=== PATIENT | female | born 1955 | race Caucasian/White ===

== ENCOUNTER 2019-02-03 08:56 | Observation (INO) | payer MEDICARE ==
--- NOTE | 2019-01-21 23:57 | HP ---
AMENDED REPORT NOW INCLUDES DESIGNATED COSIGNER HISTORY AND PHYSICAL: DATE OF ADMISSION/SURGERY: 02/03/19 DATE OF OFFICE VISIT: 01/21/19 ATTENDING SURGEON: Dr. Fagan.* (DICTATED BY DOYLE GONZALEZ) PROCEDURE: Right total knee arthroplasty. CHIEF COMPLAINT: Right knee pain. HISTORY OF PRESENT ILLNESS: Ms. Nelson is a 63-year-old female with bilateral knee pain, right greater than left. The patient reports 10 years of increasing right knee pain with 7/10 achy pain along the medial and lateral joint line. She did have an arthroscopy on the right knee [address] Miles for a meniscal tear. The patient reports over the last six months her right knee has become daily aching pain. She notes that she cannot extend her knee all the way. She has had physical therapy, injections, antiinflammatories, brace wear, and multiple different kinds of cream for pain with minimal relief. She can no longer walk more than a block without significant pain. At this point, she would like to proceed with surgery. PAST MEDICAL HISTORY: Osteoarthritis, diverticulitis, GERD, anxiety, and essential tremor affecting both hands. PAST SURGICAL HISTORY: She had a right knee arthroscopy in 2009. MEDICATIONS: 1. Citalopram hydrobromide 40 mg 1 p.o. daily. 3. Glucosamine sulfate 1.5 g p.o. daily. 4. Multivitamin p.o. daily. 5. Fish oil 4000 mg p.o. daily. 6. Sedaplex valerian 200 mg, hops 150 mg, 150 mg passion flower valerian, Skulcap 125 mg. 7. Iron 65 mg p.o. daily. 8. Chondroitin sulfate 1.2 mg p.o. daily. 9. Ibuprofen 400 mg p.o. p.r.n. for pain. ALLERGIES: No known drug allergies. FAMILY HISTORY: Positive for diabetes and colon cancer. 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 She lives with her daughter and grandson. She denies tobacco or recreational drug use. She drinks 4 alcohol drinks per week. She is normally active with swimming and walking. She is right hand dominant. REVIEW OF SYSTEMS: General: Negative for fevers, chills, night sweats, unexplained weight loss or gain. No known anesthesia problems. HEENT: Negative for headache, lightheadedness, syncopal episodes, visual changes. Integumentary: Negative for abrasions, lesions, open wounds. Cardiothoracic: Negative for hypertension, chest pain, palpitations, edema. Respiratory: Negative for shortness of breath with exertion, chronic cough, wheezing. GI: Negative for nausea, vomiting, diarrhea, constipation, GERD. : Negative for nocturia, urinary frequency, urgency, history of UTIs, kidney problems. Musculoskeletal: Positive for bilateral knee pain and chronic back pain. Negative for history of fractures. Neurologic: Negative for paresthesias, numbness, history of seizure, stroke, poor balance. Negative for anxiety, depression. Endocrine: Negative for diabetes, thyroid disease. Hematologic: Negative for easy bruising, anemia, bleeding disorders, history of DVT. ID: Negative for history of MRSA infection, hep C, or HIV. PHYSICAL EXAMINATION GENERAL: Well-developed, well-nourished 63-year-old female, in no acute distress. VITAL SIGNS: Height 55 inches, weight 155 pounds. Pulse 60, BP 128/68, BMI 25.8. HEENT: Normocephalic, atraumatic. PERRLA. Extraocular movements intact. Throat is clear. NECK: Supple. No palpable lymph nodes. PULMONARY: Lungs are clear to auscultation bilaterally. No wheezes, rales, or rhonchi. CARDIO: Regular rate and rhythm. S1 and S2 normal. No murmurs, rubs, or gallops. No edema. ABDOMEN: Positive bowel sounds, soft and nontender. NEUROLOGIC: A and O x3. Cranial nerves II through XII intact. Sensation is intact to light touch. MUSCULOSKELETAL: Right lower extremity: The patient's skin is intact. No abrasions or open wounds. No palpable masses or lymph nodes. Moderate effusion at the knee joint with tenderness along the medial joint line. Range of motion is 20 to 100 degrees of flexion at the knee. Tenderness along the medial joint line with no varus or valgus instability. Distally, no edema, varicosities, or hyperreflexia. 5/5 ankle dorsiflexion and plantarflexion strength. Full sensation to light touch in all nerve distributions and 2+ palpable DP pulse. DIAGNOSTIC STUDIES: Multiple plain films of the patient's bilateral knee showed advanced osteoarthritis in both knees. The right knee is more affected than the left. There is medial patellofemoral pjai-si-mocr arthritis. Tricompartmental joint space narrowing. Osteophyte formation and subchondral sclerosis. IMPRESSION: Bilateral knee osteoarthritis, right greater than left. PLAN: The patient is scheduled to undergo a right total knee arthroplasty with Dr. Fagan on 02/03/19. Dr. Fagan discussed the procedure as well as the risks and benefits with the patient and she elected to proceed. She will return to the office in 10 day postop for followup and suture removal. Upon discharge from the hospital, a prescription for Percocet will be e-scribed to the patient' s pharmacy for postoperative pain management. An I-STOP was completed today in the office and was negative. DOYLE REYES [id number]/CPS #: [id number] MTDD
[~2019-02-03 08:56] MED LIST: Buffered Lidocaine 1% SYRIN* 1 ML/SYRINGE INTRADERM ONE; Famotidine IV* 10 MG/ML 2 ML (20 mg) IV ONE; Lactated Ringers 1000 ML Bag* 1,000 ML IV SCH; Tranexamic Acid 1,000 MG in NS 0.9% 50 ML* (outpatient use) IV SCH
[2019-02-03] MEDS ORDERED: Famotidine IV* 10 MG/ML 2 ML (20 mg) ONE (09:01)
[2019-02-03] MEDS ORDERED: Buffered Lidocaine 1% SYRIN* 1 ML/SYRINGE INTRADERM ONE (09:01)
[2019-02-03] MEDS ORDERED: ceFAZolin 2 GM in NS PREMIX(*) 2 GM/100 ML BAG IVPB ONE (09:01)
[2019-02-03] MEDS ORDERED: Lidocaine 1% MPF ** 5 ML VIAL ONE (09:55)
[2019-02-03] MEDS ORDERED: ROPIVACAINE 5 MG/ML 30 ML BTL (0.5%) ONE ×2 (09:55→11:14)
[2019-02-03] MEDS ORDERED: fentaNYL* 50 MCG/ML 2 ML VIAL (100 MCG VIAL) ONE (10:02)
[2019-02-03] MEDS ORDERED: Midazolam* 1 MG/ML 5 ML VIAL (5 MG) ONE (10:03)
[2019-02-03] MEDS ORDERED: KETAMINE HCL* 50 MG/ML 10 ML VIAL ONE (12:10)
[2019-02-03] MEDS ORDERED: Ondansetron INJ* 2 MG/ML VIAL ONE (12:30)
[2019-02-03] MEDS ORDERED: Dexamethasone IV* 4 MG/ML 1 ML (4 MG) ONE (12:30)
[2019-02-03] MEDS ORDERED: DiMENhydriNATE IV* 50 MG/ML VIAL ONE (12:30)
[2019-02-03] MEDS ORDERED: Ketorolac INJ* 30 MG/ML 1 ML VIAL ONE (12:30)
[2019-02-03] MEDS ORDERED: Propofol* 10 MG/ML 20 ML BTL ONE (12:30)
[2019-02-03] MEDS ORDERED: Midazolam* 1 MG/ML 2 ML VIAL (2 MG) ONE (13:33)
[2019-02-03] MEDS ORDERED: oxyCODONE TAB* 5 MG TAB PO PRN (13:50)
[2019-02-03] MEDS ORDERED: HYDROmorphone INJ1* 1 MG/ML SYRINGE IV PRN (13:50)
[2019-02-03] MEDS ORDERED: Acetaminophen TAB* 325 MG PO PRN (13:50)
[2019-02-03] MEDS ORDERED: Naloxone* 0.4 MG/ML 1 ML VIAL IV PRN (13:50)
[2019-02-03] MEDS ORDERED: DiMENhydriNATE IV* 50 MG/ML VIAL IV PUSH PRN (13:50)
[2019-02-03] MEDS ORDERED: Morphine INJ* 2 MG/ML 1 ML SYRINGE (TWO MG - NEW SYRINGE VERSION) IV PRN (14:28)
[2019-02-03] MEDS ORDERED: Bisacodyl SUPP* 10 MG SUPP PR PRN (14:28)
[2019-02-03] MEDS ORDERED: Cyclobenzaprine TAB* 10 MG PO PRN (14:28)
[2019-02-03] MEDS ORDERED: Polyethylene Glycol 3350* 17 GM PACKET PO PRN (14:28)
[2019-02-03] MEDS ORDERED: diPHENhydraMINE IV* 50 MG/ML 1 ml VIAL (BENADRYL) IV PRN (14:28)
[2019-02-03] MEDS ORDERED: diPHENhydraMINE PO* 25 MG PO PRN (14:28)
[2019-02-03] MEDS ORDERED: traMADol TAB* 50 MG PO PRN (14:28)
[2019-02-03] MEDS ORDERED: Ondansetron INJ* 2 MG/ML VIAL IV PRN (14:28)
[2019-02-03] MEDS ORDERED: Magnesium Hydroxide LIQ* 30 ML UDC PO PRN (14:28)
[2019-02-03] MEDS ORDERED: oxyCODONE/Acetamin 5/325 MG* TAB PO PRN (14:34)
[2019-02-03] MEDS ORDERED: Lactated Ringers 1000 ML Bag* 1,000 ML IV SCH (15:00)
[2019-02-03] MEDS ORDERED: Acetaminophen TAB* 325 MG ONE (15:25)
[2019-02-03] MEDS: Acetaminophen TAB* 325 MG PO SCH (16:19)
[2019-02-03] MEDS: oxyCODONE TAB* 5 MG TAB PO PRN ×2 (16:46→21:48)
--- NOTE | 2019-02-03 18:23 | OP ---
Operative Report - Blank - Operative Report Date of Operation: 02/03/19 Note: LUIS SARMIENTO 1955 Date of Surgery: 02/03/19 Jessie Fagan MD C S S Representative: Pedro KWON did help throughout the procedure with preparation of the knee, wound retraction, manipulation of the knee, and wound closure. Anesthesiologist: Erica Bob MD Anesthesia Type: Spinal Preoperative Diagnosis: Right severe degenerative osteoarthritis of the knee Postoperative Diagnosis: As above Procedure Performed: Right Total Knee Arthroplasty Tourniquet time: 43 minutes Complications: None Specimen: Bone and cartilage from the right knee joint sent to pathology. Hardware Used: Cemented Escalante and Nephew total knee hardware was used - For the femur a size 6 right narrow oxinium legion posterior stabilized femoral component, for the tibia a size 4 right arabella II tibial baseplate, for the insert a size 9mm 3-4 posterior stabilized high flexion articular polyethylene insert, and for the patella a size 32 3-peg all poly patella. Brief History/Indication: LUIS SARMIENTO was known in clinic and had a history of severe right knee pain and swelling. She failed conservative treatment with anti-inflammatories, pain pills, intra-articular injections and physical therapy. She elected to undergo right total knee arthroplasty due to continued pain and decreased quality of life. Radiographs showed severe end stage osteoarthritis of the knee with bone on bone contact. Informed consent was obtained from the patient. She understood the risks of surgery included but were not limited to: bleeding, infection, damage to nearby structures, intraoperative fracture, nerve palsy, failure of the hardware, early loosening, knee stiffness or loss of motion, anesthesia complications, stroke, heart attack , blood clot and . She wished to proceed. Intra-Operative Findings: Intraoperatively the patient was noted to have severe loss of cartilage in all 3 compartments of the knee. Description of the Procedure: LUIS SARMIENTO was identified in the preanesthesia unit. Her right knee was marked as the correct operative side. Informed consent was signed and placed in the chart. The patient was taken to the operating room and placed under anesthesia without complication. A felix catheter was placed. A tourniquet was placed on the right thigh. The right lower extremity was prepped and draped in the usual sterile fashion. Preoperative time-out was made to correctly identify the patient, side and site. Appropriate intraoperative antibiotics were given within one hour of incision. Tourniquet was inflated. A midline incision was made and carried sharply down to the extensor mechanism. A new 10 blade was used to make a standard medial parapatellar arthrotomy. The patella was subluxed laterally. Electrocautery was used to dissect soft tissue off the superomedial tibia to the midsagittal plane. The knee was flexed up. The anterior horn of the lateral meniscus and the ACL were sharply incised. A drill was used to enter the distal femur. The intramedullary distal femoral cutting guide was pinned on the distal femur. The oscillating saw was used to make the distal femoral cut. The external rotation guide was pinned on the distal femur and the distal femur was sized to a size 6. The size 6 multi-cutting jig was pinned on the distal femur. The oscillating saw was used to make the appropriate 4 chamfer cuts. Next the PCL was completely released. The extramedullary tibial cutting guide was pinned on the proximal tibia and the oscillating saw was used to make the proximal tibial cut perpendicular to the mechanical axis of the tibia. The bone was carefully removed. The knee was brought out into full extension. The spacer block was placed and had excellent fit with the knee in full extension. The medial and lateral ligaments were well balanced. The flexion and extension gaps were well balanced. The knee was flexed up. Lamina long winder tender was placed both medially and laterally. Any remaining meniscus was removed with electrocautery. Curved osteotome was used to remove any posterior osteophytes. The tibial tray and drop jeramie were placed and confirmed a satisfactory tibial cut. The size 6 right narrow femoral trial was impacted onto the distal femur. This trial had excellent fit and stability. The box for the posterior stabilized implant was prepared using a box cut osteotome and a reamer. Next a tibial tray trial and 9 mm insert trial was placed. The knee was taken through a range of motion and had full extension to 130 degrees of flexion. Patellofemoral tracking was satisfactory. The patella was inverted and sized to a size 32. Three peg holes were drilled through the size 32 drill guide. The trial patella was placed and the knee was taken through a range of motion. There was satisfactory patellofemoral tracking. All trials were removed. The tibia was subluxed anteriorly and sized to a size 4. The proximal tibial was prepared with a size 4 keel punch. All bony cut surfaces were irrigated with sterile saline and dried. Final implants were cemented into place starting with the tibia, followed by the femur, and last the patella. A 9 mm insert trial was placed and the knee was brought into full extension. Tourniquet was turned down and the knee was copiously irrigated with sterile saline. Electrocautery was used to obtain meticulous hemostasis. Once the cement had fully cured, the insert trial was removed. Any excess cement was removed from around the hardware and capsule. Final insert chosen was a 9 mm posterior stabilized Arabella II articular insert size 3-4. Stability of the insert was checked and noted to be stable. The extensor mechanism was closed using number 1 vicryls. The rest of the incision was closed in a layered fashion using 0 and 2-0 vicryls. The skin was closed using 3-0 nylon suture. Sterile xeroform, 4x4s and webril were used to cover the incision. Arnulfo wrap and cold pack were used to cover the dressings. The patients anesthesia was reversed without difficulty. She was taken to the PACU in stable condition. Intended weight-bearing will be as tolerated.
[2019-02-03] MEDS: ceFAZolin 1 GM ADVAN(*) 1 GM in NS 0.9% 50 ML* 50 ML IVPB SCH (19:45)
[2019-02-03] MEDS: Docusate CAP* 100 MG PO SCH (21:49)
[2019-02-03] MEDS: Magnesium Hydroxide LIQ* 30 ML UDC PO SCH (21:49)
[2019-02-04] MEDS: Acetaminophen TAB* 325 MG PO SCH ×3 (00:56→16:24)
[2019-02-04] MEDS: oxyCODONE TAB* 5 MG TAB PO PRN ×2 (02:07→06:12)
[2019-02-04] MEDS: oxyCODONE/Acetamin 5/325 MG* TAB PO PRN ×4 (04:11→16:17)
[2019-02-04] MEDS: ceFAZolin 1 GM ADVAN(*) 1 GM in NS 0.9% 50 ML* 50 ML IVPB SCH ×2 (04:13→11:35)
[2019-02-04 06:44] LABS: Hematocrit 32 % (35-47); Mean Platelet Volume 7.9 fL (7.4-10.4); Platelet Count 171 10^3/uL (150-450)
[2019-02-04 07:05] LABS: BUN/Creatinine Ratio 20.8 (8-20); Calcium 8.6 mg/dL (8.6-10.3); EGFR African American 157.1 (>60); EGFR Non-African American 129.8 (>60); Potassium 3.8 mmol/L (3.5-5.0)
[2019-02-04] MEDS: Docusate CAP* 100 MG PO SCH (08:54)
[2019-02-04] MEDS: Magnesium Hydroxide LIQ* 30 ML UDC PO SCH (08:55)
[2019-02-04] MEDS ORDERED: Citalopram TAB* 40 MG PO SCH (09:00)
[2019-02-04] MEDS ORDERED: Apixaban* 2.5 MG TAB PO SCH (09:00)
[2019-02-04] MEDS ORDERED: Pneumococcal *Vac Polyvalent 0.5 ML VIAL IM ONE (09:00)
[2019-02-04] MEDS ORDERED: IRON 65 MG PO SCH (09:00)
--- NOTE | 2019-02-04 10:49 | DS ---
Orthopedic Discharge Summary - Discharge Summary Date of Admission:02/03/19 Date of Discharge: 02/04/19 Date of Surgery: 02/03/19 Attending Orthopedic Provider: Dr. Fagan Pre-operative Diagnosis: Degenerative arthritis right knee Operative Procedure: Right total knee arthroplasty Disposition of Patient: home Condition of Patient: stable History: LUIS SARMIENTO is a 63 year old F with years of increasingly severe right knee pain. Patient has failed conservative management and has elected to undergo a right total knee replacement Hospital Course: LUIS was admitted to [facility] on 02/03/19. Patient underwent a right total knee replacement without complication followed by a brief recovery in PACU and transfer to the Short Stay Surgical Unit in stable condition. Our hospitalist service, physical therapy and occupational therapy also participated in this patients care. Post-op day 1: patient was alert and in no acute distress. Dressing was clean, dry and intact. Operative extremity dorsiflexion and plantarflexion intact, sensation intact to light touch distally, DP2+. Dressing was changed, incision was clean, dry and intact. Patient was deemed to be medically and orthopedically stable for discharge. Physical therapy goals were met. Home Medications Medication Instructions Recorded Confirmed Type Citalopram TAB* [Celexa TAB*] 40 mg PO QAM 12/30/12 02/03/19 History Multivitamin [Multivitamins] 1 cap PO QAM 12/30/12 02/03/19 History [place]-3/Dha/Epa/Fish Oil [Fish Oil 4 cap PO QAM 12/16/13 02/03/19 History EC 1,000 mg Softgel] Glucosam/Chondr/Collagn/Hyalur 1 cap PO QAM 01/21/19 02/03/19 History [Glucosamine & Chondroitin Cap] Iron 65 Mg 1 tab PO QAM 01/21/19 02/03/19 History Sedaplex 2 Capsules 2 cap PO BEDTIME PRN 01/21/19 02/03/19 History T-Relief Arnica Cream 1 applic TOPICAL BID PRN 01/21/19 02/03/19 History Apixaban* [Eliquis*] 2.5 mg PO BID #60 tab 02/04/19 Rx Docusate CAP* [Colace Cap*] 100 mg PO BID cap 02/04/19 Rx oxyCODONE/Acetamin 5/325 MG* 1 tab PO Q4H PRN #56 tab MDD 8 02/04/19 Rx [Percocet 5/325 TAB*] Discharge Instructions following Orthopedic Surgery: Activity: * Weight Bearing as tolerated * Continue physical therapy and occupational therapy exercises as shown Wound care: * OK to shower on post-op day 3, no bathing, swimming, or submerging wound. * Use gentle soap, pat dry. Cover with gauze, DRAKE wrap or tape. * Visiting home nurse to do wound checks. Call Orthopedic office for: * Increased drainage * Redness * Increased pain * Fever Go to ER with shortness of breath or chest pain. Diet: * Regular diet * Increase fluids and fiber to prevent constipation. * Continue to use stool softeners, call office if no bowel motion within 48 hours. Medications See Home Medication List in your packet for medications that you should take after discharge. DVT Prophylaxis: Eliquis Dosin.5 mg, 1 tab every 12 hours x 30 days Pain Control: Percocet Dosin/325 mg 1-2 tabs by mouth every 4-6 hours as needed for pain. Maximum of 10 tabs per day. Please note that Percocet contains Tylenol (acetaminophen). Maximum daily dose of Tylenol is 4000 mg from all sources. Antibiotics are required prior to any dental work. FOLLOW UP: Follow up with Dr. Fagan Within 10-14 days, call for appointment Please call our office with any questions or concerns ([phone])
[2019-02-04 16:00] VITALS: BP 148/68
== END 2019-02-04 18:45 | disposition home or self-care (01) ==
LOC: OR 08:56 → INTOOBSV 14:28 → SSU 14:28
PROVIDERS: ADMIT Orthopaedic Surgery Adult Reconstructive Orthopaedic Surgery; ATTEND Orthopaedic Surgery Adult Reconstructive Orthopaedic Surgery
DX: M17.11 Unilateral primary osteoarthritis, right knee (principal); K57.92 Diverticulitis of intestine, part unspecified, without perforation or abscess without bleeding; K21.9 Gastro-esophageal reflux disease without esophagitis; F41.9 Anxiety disorder, unspecified; Z79.899 Other long term (current) drug therapy
CPT/HCPCS: 36415; 80048; 85014; 85018; 85049; 90471; 90732; 96374; 96376; A9270-GY; C1776; G0009; G0378; G8978-GP-CJ; G8979-GP-CI; J0690; J1100; J1240; J1885; J2250; J2405; J2704; J2795; J3010

== ENCOUNTER 2019-02-18 09:24 | Emergency (ER) | payer MEDICARE ==
--- OUTSIDE RECORDS SUMMARY | 2019-02-18 09:47 | XMS REPORT | Continuity of Care Document ---
:1955 External Reference #:[id number] Author Name TracyTerrie perez Care Team Providers Name Role Phone Pawel Singh MD Primary Care Physician Unavailable Payers Date Identification Numbers Payment Provider Subscriber Policy Number: [id number] Medicare Татьяна Nelson PayID: [id number] [address] [place] [address] Policy Number: [id number] [facility] Татьяна Nelson PayID: [id number] [address] [place] [address] Expires: 2018 Policy Number: [id number] [employer] Татьяна Nelson PayID: [id number] [address] [address] [place] [address] Problems Active Problems Provider Date Localized, primary osteoarthritis Jessie Fagan M.D. 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 Tablets 30 days T-Relief Pain Relief Unknown Ibuprofen prn Unknown 400mg Tablets Chondroitin Sulfate 1.2mg Unknown Iron (Ferrous 65mg Unknown Sulfate) Skulcap 125mg Unknown Passion Unknown Flower-Valerian Jujube 150mg Unknown Sedaplex Valerian 200mg Unknown Hops 150mg Fish Oil 4000mg Unknown Multivital Unknown Glucosamine Sulfate 1.5g Unknown Citalopram Take 1 Tablet By Unknown Hydrobromide Mouth Every Day 40mg Tablets History Medications L-Theanine 100mg Unknown - 01/20/2019 Capsules Niacin 25mg Unknown - 01/20/2019 Vitamin B6 15mg Unknown - 01/20/2019 Calcium 25mg Unknown - 01/20/2019 Magnesium 25mg Unknown - 01/20/2019 Medications Administered in Office Medication SIG Qnty Indications Ordering Provider Date Depomedrol 80MG Mayra Phan M.D. 11/04/2012 Injection Vital Signs Date Vital Result Comment 02/16/2019 9:37am Height 66 inches 5'6" Weight 80.00 lb BP Systolic 116 mmHg BP Diastolic 80 mmHg Body Temperature 97.5 F BMI (Body Mass Index) 12.9 kg/m2 01/21/2019 10:12am Height 65 inches 5'5" Weight 155.00 lb Heart Rate 60 /min BP Systolic 128 mmHg BP Diastolic 68 mmHg BMI (Body Mass Index) 25.8 kg/m2 11/29/2018 11:32am Height 65 inches 5'5" Weight 159.00 lb Heart Rate 60 /min BP Systolic 130 mmHg BP Diastolic 74 mmHg Pain Level 7 BMI (Body Mass Index) 26.5 kg/m2 Results Test Date Facility Test Result H/L Range Note CBC Auto 01/21/2019 [facility] White Blood 6.1 10^3/uL Normal 3.5-10.[address] [place] [address] [phone] Red Blood Count 4.37 10^6/uL Normal 3.70-4.87 Hemoglobin 13.4 g/dL Normal 12.0-16.0 Hematocrit 39 % Normal 35-47 Mean Corpuscular Volume 90 fL Normal 80-97 Mean Corpuscular Hemoglobin 31 pg Normal 27-31 Mean Corpuscular HGB Conc 34 g/dL Normal 31-36 Red Cell Distribution Width 15 % Normal 10-15 Platelet Count 255 10^3/uL Normal 150-450 Mean Platelet Volume 7.3 fL Low 7.4-10.4 Abs Neutrophils 3.5 10^3/uL Normal 1.5-7.7 Abs Lymphocytes 1.9 10^3/uL Normal 1.0-4.8 Abs Monocytes 0.5 10^3/uL Normal 0-0.8 Abs Eosinophils 0.1 10^3/uL Normal 0-0.6 Abs Basophils 0.1 10^3/uL Normal 0-0.2 Abs Nucleated RBC 0.0 10^3/uL Granulocyte % 57.2 % Lymphocyte % 31.8 % Monocyte % 7.8 % Eosinophil % 2.1 % Basophil % 1.1 % Nucleated Red Blood Cells % 0.1 Urinalysis Profile 01/21/2019 [facility] Urine Color Yellow [address] [place] [address] [phone] Urine Appearance Clear Urine Specific [place] 1.014 Normal 1.010-1.030 Urine pH 5.0 Normal 5-9 Urine Urobilinogen Negative Negative Urine Ketones Negative Negative Urine Protein Negative Negative Urine Leukocytes Negative Negative Urine Blood Negative Negative Urine Nitrite Negative Negative Urine Bilirubin Negative Negative Urine Glucose Negative Negative Inr/Protime 01/21/2019 [facility] Inr 0.90 Normal 0.82-1.[address] [place] [address] [phone] Laboratory test 01/21/2019 [facility] Partial 33.0 Normal 26.0 -38.0 [address] [place] [address] Time PTT [phone] Type & Screen 01/21/2019 [facility] Patient A Positive [address] [place] [address] [phone] Antibody Screen NEGATIVE 1 AA 02/03 2 Standard intensity warfarin therapeutic range: 2.0-3.0 High intensity warfarin therapeutic range: 2.5-3.5 3 AA 02/03 Procedures Date Code Description Status 02/03/2019 97260 TKR Total Knee Replacement Completed 02/03/2019 81353 TKR Total Knee Replacement Completed 11/04/2012 35267 Rad Exam; Fingers Completed 11/04/2012 60174 Inject/Drain Joint/Bursa Small W/O US Completed 12/15/2006 04186 EKG, Interpretation Only Completed Encounters Type Date Location Provider Dx Diagnosis Office Visit 11/29/2018 Orthopedic Jessie Fagan, M25.561 Pain in right 11:00a [facility] knee M25.562 Pain in left knee M25.461 Effusion, right knee M25.462 Effusion, left knee M17.0 Bilateral primary osteoarthritis of knee Office Visit 11/04/2012 1:00p Orthopedic Mayra 716.94 Arthropathy [facility] Plan of Treatment 02/16/2019 - Jessie Fagan M.D.M17.11 Unilateral primary osteoarthritis, right kneeNew Therapy:Physical TherapyFollow up:Follow up: 2 ceckaZ17.651 Presence of right artificial knee cwftcU09.1 Aftercare following joint replacement surgery
--- OUTSIDE RECORDS SUMMARY | 2019-02-18 09:47 | XMS REPORT | Continuity of Care Document ---
:1955 External Reference #:[id number] Author Name Karrie Kemp Care Team Providers Name Role Phone Pawel Singh MD Primary Care Physician Unavailable Payers Date Identification Numbers Payment Provider Subscriber Policy Number: [id number] Medicare Татьяна Nelson PayID: [id number] [address] [place] [address] Policy Number: [id number] [facility] Татьяна Nelson PayID: [id number] [address] [place] [address] Expires: 2018 Policy Number: [id number] [employer] Татьяна Nelson PayID: [id number] [address] [address] [place] [address] Problems Active Problems Provider Date Localized, primary osteoarthritis Jessie Fagan M.D. 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 Use Currently consumes alcohol 4 drinks/week Tobacco Use Start: Unknown Patient has never smoked Smoking Status Reviewed: 01/21/19 Patient has never smoked Exercise Type/Frequency Exercises regularly Allergies, Adverse Reactions, Alerts Description No Known Drug Allergies Medications Active Medications SIG Qnty Indications Ordering Provider Date T-Relief Pain Relief Unknown Ibuprofen prn Unknown 400mg Tablets Chondroitin Sulfate 1.2mg Unknown Iron (Ferrous Sulfate) 65mg Unknown Skulcap 125mg Unknown Passion Unknown Flower-Valerian Jujube [...] Injection Vital Signs Date Vital Result Comment 01/21/2019 10:12am Height 65 inches 5'5" Weight [...] Test Result H/L Range Note CBC Auto Diff 01/21/2019 [facility] White Blood 6.1 10^3/uL N 3.5-10.[address] [place] [address] [phone] Red Blood Count 4.37 10^6/uL N 3.70-4.87 Hemoglobin 13.4 g/dL N 12.0-16.0 Hematocrit 39 % N 35-47 Mean Corpuscular Volume 90 fL N 80-97 Mean Corpuscular Hemoglobin 31 pg N 27-31 Mean Corpuscular HGB Conc 34 g/dL N 31-36 Red Cell Distribution Width 15 % N 10-15 Platelet Count 255 10^3/uL N 150-450 Mean Platelet Volume 7.3 fL Low 7.4-10.4 Abs Neutrophils 3.5 10^3/uL N 1.5-7.7 Abs Lymphocytes 1.9 10^3/uL N 1.0-4.8 Abs Monocytes 0.5 10^3/uL N 0-0.8 Abs Eosinophils 0.1 10^3/uL N 0-0.6 Abs Basophils 0.1 10^3/uL N 0-0.2 Abs Nucleated RBC 0.0 10^3/uL Granulocyte % 57.2 % Lymphocyte % 31.8 % Monocyte % 7.8 % Eosinophil % 2.1 % Basophil % 1.1 % Nucleated Red Blood Cells % 0.1 Urinalysis Profile 01/21/2019 [facility] Urine Color Yellow [address] [place] [address] [phone] Urine Appearance Clear Urine Specific [place] 1.014 N 1.010-1.030 Urine pH 5.0 N 5-9 Urine Urobilinogen Negative Negative Urine Ketones Negative Negative Urine Protein Negative Negative Urine Leukocytes Negative Negative Urine Blood Negative Negative Urine Nitrite Negative Negative Urine Bilirubin Negative Negative Urine Glucose Negative Negative 1 AA 02/03 Procedures Date Code Description Status 11/04/2012 41905 Rad Exam; Fingers Completed 11/04/2012 82601 Inject/Drain Joint/Bursa Small W/O US Completed 12/15/2006 60228 EKG, Interpretation Only Completed Encounters Type Date Location Provider Dx Diagnosis Office Visit 11/29/2018 [facility] Jessie Fagan, M25.561 Pain in right 11:00a [facility] knee M25.562 Pain in left knee M25.461 Effusion, right knee M25.462 Effusion, left knee M17.0 Bilateral primary osteoarthritis of knee Office Visit 11/04/2012 1:00p Orthopedic Mayra 716.94 [facility] Plan of Treatment Future Appointment(s):02/03/2019 12:30 pm - Segundo Crespo PA-C at [facility]/03/2019 12:30 pm - URMILA Ryan at [facility]/03/2019 12:30 pm - Jessie Fagan M.D. at [facility]/21/2019 - Jessie Fagan M.D.M17.0 Bilateral primary osteoarthritis of kneeFollow up:10-14 days post-opM25.561 Pain in right knee
--- NOTE | 2019-02-18 12:06 | ED ---
Allergic Reaction/Systemic - HPI Summary HPI Summary: A 63 y/o female presents to [facility] with a chief complaint of lip swelling since yesterday. Now she notes that her swelling has radiated to her jaw. She denies any previous allergic reactions. 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 The patient is not on blood pressure medications and is not having difficulty swallowing, but she notes that it itches. - History of Current Complaint Chief Complaint: EDFacialInjury Time Seen by Provider: 02/18/19 11:52 Hx Obtained From: Patient Onset/Duration: Sudden Onset, Started hours ago, Still Present Timing: Constant Severity Initially: Mild Severity Currently: Mild Pain Intensity: 1 Pain Scale Used: 0-10 Numeric Location: Other - lip and jaw Character: Swelling, Pruritus Aggravating Factor(s): Nothing Alleviating Factor(s): Nothing Associated Signs And Symptoms: Negative: Other: - difficulty swallowing - Allergies/Home Medications Allergies/Adverse Reactions: Allergies Allergy/AdvReac Type Severity Reaction Status Date / Time nickel Allergy Severe Rash Verified 02/03/19 09:21 Home Medications: Home Medications Acetaminophen TAB* [Tylenol TAB*] 325 mg PO Q4H PRN 02/18/19 [History Confirmed 02/18/19] Ceramides 1,3,6-11 [Cerave] 1 applic TOPICAL BID PRN 02/18/19 [History Confirmed 02/18/19] Docusate CAP* [Colace Cap*] 100 mg PO DAILY 02/18/19 [History Confirmed 02/18/19 ] Fluocinolone Acetonide 1 applic TOPICAL DAILY PRN 02/18/19 [History Confirmed ] Multivitamins/Minerals TAB* [Theragran/minerals TAB*] 1 tab PO DAILY 02/18/19 [ History Confirmed 02/18/19] Tumeric 1 tab PO DAILY 02/18/19 [History Confirmed 02/18/19] PMH/Surg Hx/FS Hx/Imm Hx Endocrine/Hematology History: Denies: Hx Diabetes Cardiovascular History: Denies: Hx Congestive Heart Failure, Hx Hypertension GI History: Reports: Hx Gastroesophageal Reflux Disease, Other GI Disorders - acid reflux Musculoskeletal History: Reports: Hx Arthritis - hands, knees, Other Musculoskeletal History - right hamstring shortened Sensory History: Reports: Hx Contacts or Glasses - glasses Denies: Hx Hearing Aid Opthamlomology History: Reports: Hx Contacts or Glasses - glasses Neurological History: Reports: Hx Nerve Disease - RLS occassionally, Other Neuro Impairments/Disorders - essentail tremors- hands, fingers - Cancer History Hx Chemotherapy: No - Surgical History Surgery Procedure, Year, and Place: LEFT MENISCUS REPAIR 2010 approx [facility]. tubal ligation. right knee meniscus repair 2006 Hx Anesthesia Reactions: No Infectious Disease History: No Infectious Disease History: Denies: Traveled Outside the [place] in Last 30 Days - Family History Known Family History: Positive: Diabetes, Other - positive: colon cancer - Social History Alcohol Use: Daily Alcohol Amount: 1-2 Substance Use Type: Reports: None Hx Tobacco Use: No Smoking Status (MU): Never Smoked Tobacco Review of Systems Negative: Fever Negative: Other - difficulty swallowing Positive: Other - positive: lip and jaw swelling and itching All Other Systems Reviewed And Are Negative: Yes Physical Exam - Summary Physical Exam Summary: GENERAL: Patient is a well-developed and nourished F who is lying comfortable in the stretcher. Patient is not in any acute respiratory distress. HEAD AND FACE: Normocephalic, jaw is swollen and red, uvula is unswollen and midline. EYES: PERRLA, EOMI x 2. EARS: Hearing grossly intact. MOUTH: Oropharynx within normal limits. NECK: Supple, trachea is midline, no adenopathy, no JVD, no carotid bruit. CHEST: Symmetric, no tenderness at palpation LUNGS: Clear to auscultation bilaterally. No wheezing or crackles. CVS: Regular rate and rhythm, S1 and S2 present, no murmurs or gallops appreciated. ABDOMEN: Soft, non-tender. Bowel sounds are normal. No abnormal abdominal pulsations. EXTREMITIES: Full ROM in all major joints, no edema, no cyanosis or clubbing. NEURO: Alert and oriented x 3. No acute neurological deficits. Speech is normal and follows commands. SKIN: Dry and warm Triage Information Reviewed: Yes Vital Signs On Initial Exam: Initial Vitals Temp Pulse Resp BP Pulse Ox 98.5 F 73 18 112/84 97 02/18/19 09:29 02/18/19 09:29 02/18/19 09:29 02/18/19 09:29 02/18/19 09:29 Vital Signs Reviewed: Yes Diagnostics - Vital Signs Vital Signs Temp Pulse Resp BP Pulse Ox 08/09/19 11:29 97.5 F 67 18 122/77 99 02/18/19 09:29 98.5 F 73 18 112/84 97 - Laboratory Result Diagrams: 02/18/19 12:38 02/18/19 12:38 Lab Statement: Any lab studies that have been ordered have been reviewed, and results considered in the medical decision making process. - CT maxillofacial CT Interpretation Completed By: Radiologist Summary of CT Findings: 1. SOFT TISSUE SWELLING ADJACENT TO THE MANDIBLE, NO EVIDENCE FOR ABSCESS. 2. THERE IS PERIAPICAL DISEASE IN THE THIRD MOLAR IN THE MANDIBLE ON THE RIGHT SIDE. 3. CLEAR SINUSES. ED physician has reviewed this imaging report. Allergic Reaction Course/Dx - Course Course Of Treatment: A 63 y/o female presents to [facility] with a chief complaint of lip swelling since yesterday. Now she notes that her swelling has radiated to her jaw. The physical exam revealed that the jaw is swollen and red, uvula is unswollen and midline. Maxillofacial CT impression: 1. SOFT TISSUE SWELLING ADJACENT TO THE MANDIBLE, NO EVIDENCE FOR ABSCESS. 2. THERE IS PERIAPICAL DISEASE IN THE THIRD MOLAR IN THE MANDIBLE ON THE RIGHT SIDE. 3. CLEAR SINUSES. Blood work, chemistries and urines obtained and are WNL. In the ED course the patient was given Cleocin PO, Percocet PO, Decadron IV, Benadryl IV, and Iohexol IV. The patient will be discharged with prescriptions for clindamycin, benadryl and prednisone. I discussed results with patient, and she reports feeling better. She is hemodynamically stable and safe for discharge. Strict return precautions given and she will otherwise follow up with her PCP. - Diagnoses Provider Diagnoses: Dental infection, Disease of periapical tissues of tooth, Facial swelling Discharge - Sign-Out/Discharge Documenting (check all that apply): Patient Departure - DC Patient Received Moderate/Deep Sedation with Procedure: No - Discharge Plan Condition: Stable Disposition: HOME Prescriptions: Clindamycin Cap(NF) [Clindamycin Cap 300 mg Cap(NF)] 300 mg PO TID #30 cap diPHENhydraMINE PO* [Benadryl PO 25 MG TAB*] 25 mg PO TID PRN #24 tab PRN Reason: Allergy Symptoms predniSONE [Prednisone 20 MG TAB] 20 mg PO DAILY #4 tablet Patient Education Materials: Angioedema (ED) Referrals: Pawel Singh MD [Primary Care Provider] - (1-3 days) Additional Instructions: Follow up with your primary care physician in 1-3 days. RETURN TO THE EMERGENCY DEPARTMENT FOR CHANGING OR WORSENING SYMPTOMS. - Billing Disposition and Condition Condition: STABLE Disposition: Home - Attestation Statements Document Initiated by Jackelineibe: Yes Documenting Scribe: Jason Yanez Provider For Whom Scribe is Documenting (Include Credential): Jasiel Gooden MD Scribe Attestation: I, Jason Yanez, scribed for Jasiel Gooden MD on 02/19/19 at 1150. Scribe Documentation Reviewed: Yes Provider Attestation: The documentation as recorded by the Jason hall accurately reflects the service I personally performed and the decisions made by , Marychuy Gooden MD Status of Scribe Document: Viewed
[2019-02-18] MEDS ORDERED: Dexamethasone IV* 4 MG/ML 1 ML (4 MG) IV SLOW PU ONE (12:13)
[2019-02-18] MEDS ORDERED: NS 0.9% 1000 ML** 1,000 ML IV ONE (12:13)
[2019-02-18] MEDS ORDERED: diPHENhydraMINE IV* 50 MG/ML 1 ml VIAL (BENADRYL) IV ONE (12:13)
[2019-02-18 12:54] LABS: ABS Basophils 0.1 10^3/ul (0-0.2); ABS Eosinophils 0.1 10^3/ul (0-0.6); ABS Lymphocytes 1.6 10^3/ul (1.0-4.8); ABS Monocytes 0.4 10^3/ul (0-0.8); ABS Neutrophils 5.2 10^3/ul (1.5-7.7); Eosinophil % 1.1 %; Hematocrit 33 % (35-47); Lymphocyte % 22.3 %; Mean Corpuscular HGB Conc 34 g/dL (31-36); Mean Corpuscular Hemoglobin 31 pg (27-31); Mean Corpuscular Volume 92 fL (80-97); Mean Platelet Volume 6.7 fL (7.4-10.4); Platelet Count 385 10^3/uL (150-450); Red Blood Count 3.53 10^6 /uL (3.70-4.87); Red Cell Distribution Width 15 % (10-15); White Blood Count 7.4 10^3/uL (3.5-10.8)
[2019-02-18 13:11] LABS: Albumin 3.6 g/dL (3.2-5.2); Albumin/Globulin Ratio 1.2 (1-3); BUN/Creatinine Ratio 16.3 (8-20); CRP High Sensitivity 17.48 mg/L (<2.00); Calcium 8.9 mg/dL (8.6-10.3); EGFR African American 153.4 (>60); EGFR Non-African American 126.7 (>60); Potassium 3.6 mmol/L (3.5-5.0); Total Bilirubin 0.6 mg/dL (0.2-1.0); Total Protein 6.6 g/dL (6.4-8.9)
[2019-02-18] MEDS ORDERED: oxyCODONE/Acetamin 5/325 MG* TAB PO ONE (13:11)
[2019-02-18] MEDS ORDERED: Iohexol 300* (CONTRAST) 10 ML SDV IV ONE (13:21)
[2019-02-18 14:04] LABS: Urine Appearance Clear; Urine Bilirubin Negative (Negative); Urine Blood Negative (Negative); Urine Color Straw; Urine Glucose Negative (Negative); Urine Ketones Negative (Negative); Urine Nitrite Negative (Negative); Urine Protein Negative (Negative); Urine Specific Gravity 1.003 (1.010-1.030); Urine Urobilinogen Negative (Negative)
[2019-02-18] MEDS ORDERED: Clindamycin CAP* 150 MG PO ONE (14:46)
[2019-02-18 15:07] VITALS: BP 133/88
== END 2019-02-18 15:05 | disposition home or self-care (01) ==
LOC: ED 09:24
DX: K04.7 Periapical abscess without sinus (principal); K04.90 Unspecified diseases of pulp and periapical tissues; K21.9 Gastro-esophageal reflux disease without esophagitis; Z79.899 Other long term (current) drug therapy
CPT/HCPCS: 36415; 70487; 80053; 81003; 83605; 85025; 86141; 87040; 96361; 96374; 96375; 99284; A9270-GY; J1100; J1200; Q9967

== ENCOUNTER 2019-07-14 10:23 | Inpatient (IN) | payer MEDICARE ==
--- NOTE | 2019-06-30 11:38 | HP ---
AMENDED REPORT NOW INCLUDES DESIGNATED COSIGNER - ESIGNED BEFORE ADJUSTMENTS HISTORY AND PHYSICAL: DATE OF ADMISSION/SURGERY: 07/14/19 DATE OF OFFICE VISIT: 06/29/19 SURGEON: Jessie Fagan MD.* (DICTATED BY DOYLE MAST) PROCEDURE: Left total knee arthroplasty. CHIEF COMPLAINT: Left knee pain. HISTORY OF PRESENT ILLNESS: Ms. Nelson is a 63-year-old female with end- stage osteoarthritis of the left knee. She has failed conservative treatment and elected to proceed with a left total knee arthroplasty. PAST MEDICAL HISTORY: and GERD. PAST SURGICAL HISTORY: Right total knee arthroplasty, tubal ligation, and right knee arthroscopy. CURRENT MEDICATIONS: 1. Citalopram hydrobromide 40 mg a day. 2. Glucosamine. 3. Multivitamin. 4. . 5. Valerian, jujube, passion flower valerian, skullcap. 6. Chondroitin sulfate . 7. Ibuprofen as needed. 8. Fish oil. ALLERGIES: CLINDAMYCIN and NICKEL. FAMILY HISTORY: Colon cancer, diabetes, and diverticulitis. SOCIAL HISTORY: She is a 63-year-old female. She lives alone. She does not smoke. REVIEW OF SYSTEMS: A complete 14-point review of systems was reviewed with the patient. It was all negative or noncontributory. She denies history of DVT, PE , hepatitis, HIV, or anesthesia problems. PHYSICAL EXAMINATION GENERAL: She is well developed, well nourished, in no acute distress. VITAL SIGNS: She stands 5 feet 6 inches tall, weighs 154 pounds. Her blood pressure is 110/70, heart rate 64. HEENT: Normocephalic, atraumatic. NECK: Supple. No palpable lymph nodes. PULMONARY: Lungs are clear to auscultation bilaterally. CARDIO: Regular rate and rhythm. Strong S1, S2. ABDOMEN: Soft, nontender, nondistended. MUSCULOSKELETAL: Right lower extremity: Skin is intact. There are no open wounds or abrasions. There is a moderate effusion of the right knee joint. She has some tenderness along the medial and lateral joint line. Range of motion is 0 to 125 degrees of flexion. She is able to to dorsiflex and plantarflex, has a 2+ dorsalis pedis pulse and intact sensation. NEUROLOGIC: She is alert and oriented x3. ASSESSMENT AND PLAN: Ms. Nelson is a 63-year-old female with end-stage osteoarthritis of the left knee. She has failed conservative treatment and elected to proceed with a left total knee arthroplasty. The surgery is scheduled for 07/14/[address] Fagan discussed the risks and benefits of surgery at today's visit and all of her questions were answered and she will follow up with Dr. Fagan 2 weeks after the surgery. DOYLE MAST [id number]/[facility] #: [id number] JOHNIE
[~2019-07-14 10:23] MED LIST changes: +Acetaminophen TAB* 325 MG PO ONE; -Buffered Lidocaine 1% SYRIN* 1 ML/SYRINGE INTRADERM ONE; +Gabapentin CAP(*) 300 MG PO ONE; +Ibuprofen TAB* 600 MG PO ONE
--- OUTSIDE RECORDS SUMMARY | 2019-07-14 10:27 | XMS REPORT | Continuity of Care Document ---
:1955 External Reference #:[id number] Author Name Jessie Fagan M.D. 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 Onset: 11/29/2018 Social History Type Date Description Comments Sex Unknown ETOH Use Currently consumes alcohol 4 drinks/week Tobacco Use Start: Unknown Patient has never smoked Smoking Status Reviewed: 06/29/19 Patient has never smoked Exercise Type/Frequency Exercises regularly Allergies, Adverse Reactions, Alerts Active Allergies Reaction Severity Comments Date Clindamycin 04/13/2019 Nickel 04/13/2019 Inactive Allergies NKDA 11/29/2018 Medications Active Medications SIG Qnty Indications Ordering Provider Date Citalopram Take 1 Tablet By Unknown Hydrobromide Mouth Every Day 40mg Tablets Glucosamine Sulfate 1.5g Unknown Multivital Unknown Sedaplex Valerian 200mg Unknown Hops 150mg Jujube 150mg Unknown Passion Unknown Flower-Valerian Skulcap 125mg Unknown Chondroitin Sulfate 1.2mg Unknown Ibuprofen prn Unknown 400mg Tablets T-Relief Pain Relief Unknown Fish Oil 1 tab by mouth Unknown 1000mg Capsules every morning History Medications Percocet 1-2 tabs by mouth 60tabs Jessiedilcia Fagan, 02/11/2019 - 5-325mg every 4-6 hours as M.D. 03/31/2019 Tablets needed pain Aspirin Adult take one tab twice 60tabs Jessie Rylan, 02/04/2019 - Unknown 325mg a day for 30 days M.D. Tablets Medications Administered in Office Medication SIG Qnty Indications Ordering Provider Date Depomedrol 80MG Mayra Phan M.D. 11/04/2012 Injection Immunizations Description No Information Available Vital Signs Date Vital Result Comment 06/29/2019 8:40am Height 66 inches 5'6" Weight 154.00 lb Heart Rate 64 /min BP Systolic 110 mmHg BP Diastolic 70 mmHg Respiratory Rate 18 /min Pain Level 0 BMI (Body Mass Index) 24.9 kg/m2 04/22/2019 9:58am Height 66 inches 5'6" Weight 156.00 lb Heart Rate 60 /min BP Systolic 122 mmHg BP Diastolic 84 mmHg Pain Level 0 BMI (Body Mass Index) 25.2 kg/m2 Results Test Acquired Date Facility Test Result H/L Range Note CBC Auto 01/21/2019 [facility] White Blood 6.1 10^3/uL Normal 3.5-10.[address] Count [place], [place] [id number] [phone] Red Blood Count 4.37 10^6/uL Normal 3.70-4.87 [...] Blood Cells % 0.1 Urinalysis Profile 01/21/2019 [facility] Urine Color Yellow [address] [place] [address] [phone] Urine Appearance Clear Urine Specific [place] 1.014 Normal 1.010-1.030 Urine pH 5.0 Normal 5-9 Urine Urobilinogen Negative Negative Urine Ketones Negative Negative Urine Protein Negative Negative Urine Leukocytes Negative Negative Urine Blood Negative Negative Urine Nitrite Negative Negative Urine Bilirubin Negative Negative Urine Glucose Negative Negative Inr/Protime 01/21/2019 [facility] Inr 0.90 Normal 0.82-1.[address] [place] [address] [phone] Laboratory test 01/21/2019 [facility] Partial 33.0 Normal 26.0 -38.0 [address] [address] Time PTT [phone] Type & Screen 01/21/2019 [facility] Patient A Positive [address] [place] [address] [phone] Antibody Screen NEGATIVE 1 AA 02/03 2 Standard intensity warfarin therapeutic range: 2.0-3.0 High intensity warfarin therapeutic range: 2.5-3.5 3 AA 02/03 Procedures Date Code Description Status 02/03/2019 58717 TKR Total Knee Replacement Completed 02/03/2019 58503 TKR Total Knee Replacement Completed Medical Devices Description No Information Available Encounters Type Date Location Provider Dx Diagnosis Office Visit 04/13/2019 [facility] Jessie Fagan M25.562 Pain in left knee 8:45a at [facility] M25.462 Effusion, left knee M17.12 Unilateral primary osteoarthritis, left knee Assessments Date Code Description Provider 06/29/2019 M25.562 Pain in left knee Jessie Fagan M.D. 06/29/2019 M25.462 Effusion, left knee Jessie Fagan M.D. 06/29/2019 M17.12 Unilateral primary osteoarthritis, left knee Jessie Fagan M.D. 04/22/2019 Z47.1 Aftercare following joint replacement surgery Jessie Fagan M.D. 04/22/2019 Z96.651 Presence of right artificial knee joint Jessie Fagan M.D. 04/13/2019 M25.562 Pain in left knee Jessie Fagan M.D. 04/13/2019 M25.462 Effusion, left knee Jessie Fagan M.D. 04/13/2019 M17.12 Unilateral primary osteoarthritis, left knee Jessie Fagan M.D. 04/01/2019 Z96.651 Presence of right artificial knee joint Jung Livingston MD 04/01/2019 Z47.1 Aftercare following joint replacement surgery Jung Livingston MD 03/02/2019 Z96.651 Presence of right artificial knee joint Jessie Fagan M.D. 03/02/2019 Z47.1 Aftercare following joint replacement surgery Jessie Fagan M.D. 02/16/2019 M17.11 Unilateral primary osteoarthritis, right knee Jessie Fagan M.D. 02/16/2019 Z96.651 Presence of right artificial knee joint Jessie Fagan M.D. 02/16/2019 Z47.1 Aftercare following joint replacement surgery Jessie Fagan M.D. 02/03/2019 M17.11 Unilateral primary osteoarthritis, right knee URMILA Ryan 02/03/2019 M17.11 Unilateral primary osteoarthritis, right knee eJssie Fagan M.D. 01/21/2019 M17.0 Bilateral primary osteoarthritis of knee Jessie Fagan M.D. 01/21/2019 M25.561 Pain in right knee Jessie Fagan M.D. Plan of Treatment Future Appointment(s):07/27/2019 9:45 am - Jessie Fagan M.D. at [facility] [place]/14/2019 12:30 pm - Jessie Fagan M.D. at [facility] [place]/29/2019 - Jessie Fagan M.D.M25.562 Pain in left kneeFollow up:Follow up: 2 weeks after vguocdzB77.462 Effusion, left kneeM17.12 Unilateral primary osteoarthritis, left knee Functional Status Description No Information Available Mental Status Description No Information Available Referrals Description No Information Available
--- OUTSIDE RECORDS SUMMARY | 2019-07-14 10:27 | XMS REPORT | Continuity of Care Document ---
:1955 External Reference #:[id number] Author Name Jessie Fagan M.D. (transmitted by agent of provider Terrie Guillermo) Address [address] [place] [id number] Care Team Providers Name Role Phone Pawel Singh MD - Internal Care Team Information [employer] Medicine Problems Active Problems Provider Date Arthroplasty of knee Jung Livingston MD Onset: 04/01/2019 Localized, primary osteoarthritis Jessie Fagan M.D. Onset: 11/29/2018 Social History Type Date Description Comments Sex Unknown ETOH Use Currently consumes alcohol 4 drinks/week Tobacco Use Start: Unknown Patient has never smoked Smoking Status Reviewed: 04/22/19 Patient has never smoked Exercise Type/Frequency Exercises [...] Unknown 400mg Tablets T-Relief Pain Relief Unknown History Medications Percocet 1-2 tabs by mouth 60tabs Jessie Fagan, 02/11/2019 - 5-325mg every 4-6 hours as M.D. 03/31/2019 Tablets needed pain Aspirin Adult take one tab twice 60tabs Jessie Fagan, 02/04/2019 - Unknown 325mg a day for 30 days M.D. Tablets Medications Administered in Office Medication SIG Qnty Indications Ordering Provider Date Depomedrol 80MG Mayra Phan M.D. 11/04/2012 Injection Immunizations Description No Information Available Vital Signs Date Vital Result Comment 04/22/2019 9:58am Height 66 inches 5'6" Weight 156.00 lb Heart Rate 60 /min BP Systolic 122 mmHg BP Diastolic 84 mmHg Pain Level 0 BMI (Body Mass Index) 25.2 kg/m2 04/13/2019 9:00am Height 66 inches 5'6" Weight 153.00 lb Heart Rate 77 /min BP Systolic 122 mmHg BP Diastolic 72 mmHg Body Temperature 98.4 F Pain Level 0 BMI (Body Mass Index) 24.7 kg/m2 Results Test Acquired Date Facility Test Result H/L Range Note CBC Auto 01/21/2019 [facility] White Blood 6.1 10^3/uL Normal 3.5-10.[address] Count [place], [place] [id number] [phone] Red Blood Count 4.37 10^6/uL Normal 3.70-4.87 [...] Blood Cells % 0.1 Urinalysis Profile 01/21/2019 [facility] Urine Color Yellow [address] [place] [address] [phone] Urine Appearance Clear Urine Specific [place] 1.014 Normal 1.010-1.030 Urine pH 5.0 Normal 5-9 Urine Urobilinogen Negative Negative Urine Ketones Negative Negative Urine Protein Negative Negative Urine Leukocytes Negative Negative Urine Blood Negative Negative Urine Nitrite Negative Negative Urine Bilirubin Negative Negative Urine Glucose Negative Negative Inr/Protime 01/21/2019 [facility] Inr 0.90 Normal 0.82-1.[address] [place] [address] [phone] Laboratory test 01/21/2019 [facility] Partial 33.0 Normal 26.0 -38.0 [address] [address] Time PTT [phone] Type & Screen 01/21/2019 [facility] Patient A Positive [address] [place] [place] [address] [phone] Antibody Screen NEGATIVE 1 AA 02/03 2 Standard intensity warfarin therapeutic range: 2.0-3.0 High intensity warfarin therapeutic range: 2.5-3.5 3 AA 02/03 Procedures Date Code Description Status 02/03/2019 66012 TKR Total Knee Replacement Completed 02/03/2019 74356 TKR Total Knee Replacement Completed Medical Devices Description No Information Available Encounters Type Date Location Provider Dx Diagnosis Office Visit 04/13/2019 [facility] Jessie Fagan M25.562 Pain in left knee 8:45a at [facility] M25.462 Effusion, left knee M17.12 Unilateral primary osteoarthritis, left knee Assessments Date Code Description Provider 04/22/2019 Z47.1 Aftercare following joint replacement surgery [...] 02/03/2019 M17.11 Unilateral primary osteoarthritis, right knee Jannie Gee RPA-C 02/03/2019 M17.11 Unilateral primary osteoarthritis, right knee Jessie Fagan M.D. 01/21/2019 M17.0 Bilateral primary osteoarthritis of knee Jessie Fagan M.D. 01/21/2019 M25.561 Pain in right knee Jessie Fagan M.D. Plan of Treatment Future Appointment(s):06/29/2019 9:00 am - Jessie Fagan M.D. at [facility] at Myoz[place]2607/14/2019 12:30 pm - Jessie Fagan M.D. at [facility] at [place]1404/22/2019 - Jessie Fagan M.D.Z47.1 Aftercare following joint replacement surgeryFollow up:Follow up: 1 year for right knee for H&amp ;P left TKAZ96.651 Presence of right artificial knee joint Functional Status Description No Information Available Mental Status Description No Information Available Referrals Description No Information Available
--- OUTSIDE RECORDS SUMMARY | 2019-07-14 10:27 | XMS REPORT | Summary of Care ---
:1955 Author Organization [facility] Address [address] [facility] DOYLE Wong [address] Care Team Providers Name Role Phone Pawel Singh Primary Care Provider Reason for Visit Reason Comments Pre-op Exam Left total knee replacement on 07/14/2018 with . Encounter Details Date Type Department Care Team Description 06/21/2019 Office Visit [place] [facility] Pawel Singh, Preop examination Medicine MD (Primary Dx) [address] [facility] [address] [place] [address] [phone] Allergies Active Allergy Reactions Severity Noted Date Comments Clindamycin Swelling 03/22/2019 Facial/tongue swelling Metals Rash 12/09/2013 documented as of this encounter (statuses as of 06/21/2019) Medications Medication Sig Dispensed Refills Start Date End Date Status GLUCOSAMINE DAILY. 0 Active CHONDROITIN PO TABS Emollient (CERAVE) 1 Appl by Apply 0 Active Apply externally externally route Lotion Continuous prn. acetaminophen Take 650 mg by 0 Active (TYLENOL) 325 MG Oral mouth NEEDED Tab for Pain. FLUOCINOLONE ACETONIDE 1 Dose by Apply 1 Bottle 1 05/29/2016 Active SCALP 0.01 % Apply externally route externally Oil NEEDED (itchy scalp). TURMERIC PO Take by mouth. 0 Active citalopram (CELEXA) 40 TAKE 1 TABLET BY 90 Tab 3 11/04/2018 Active MG Oral MOUTH EVERY DAY TabIndications: Dysthymic disorder VALacyclovir 1 g Oral Take 1 Tab by 14 Tab 5 01/11/2019 Active Tab mouth TWICE DAILY. docusate sodium Take 100 mg by 0 02/04/2019 Active (COLACE) 100 MG Oral mouth DAILY. Cap oxycodone-acetaminophe Take 1 Tab by 0 02/04/2019 Active n (ROXICET) 5-325 mouth NEEDED. MG/5ML Oral Solution Multiple Take 1 Each by 0 Active Vitamins-Minerals mouth DAILY. (MULTIVITAMIN ADULT PO) [place]-3 Fatty Acids Take 4 Each by 0 Active (FISH OIL) 1000 MG mouth DAILY. Oral Cap trimethoprim-polymyxin Place 2 Drops in 1 Bottle 0 05/03/2019 Active B (POLYTRIM) 97503-5.1 right eye FOUR UNIT/ML-% Ophthalmic TIMES DAILY. Use SolutionIndications: for 5-7 days. Bacterial conjunctivitis of right eye documented as of this encounter (statuses as of 06/21/2019) Active Problems Problem Noted Date Recurrent genital herpes 01/11/2019 Mixed hyperlipidemia 10/05/2018 Primary osteoarthritis of right knee 12/29/2017 Primary osteoarthritis of both knees 04/29/2016 Chronic nonallergic rhinitis 03/29/2013 Dysthymic disorder 02/03/2008 Esophageal reflux 07/27/2007 Family history of colon cancer 07/27/2007 Overview: Mom age 74, age 77. 4 siblings have colon polyps-all older than patient. Colonoscopy normal 2001 [facility] documented as of this encounter (statuses as of 06/21/2019) Resolved Problems Problem Noted Date Resolved Date Primary osteoarthritis of right knee 04/29/2016 01/28/2017 Arthralgia of right knee 01/24/2016 04/29/2016 Screening cholesterol level 08/31/2012 04/29/2016 Overview: 08/25/12 TC 198, HDL 94, LDL 96, Trigs 29 Anxiety state, unspecified 02/03/2008 04/29/2016 Palpitations 07/27/2007 01/28/2017 Overview: Stress echo negative 2005. Other atopic dermatitis and related conditions 07/27/2007 04/29/2016 documented as of this encounter (statuses as of 06/21/2019) Immunizations Name Administration Dates Next Due Influenza (IM) Preservative Free 05/23/2018, 08/25/2017, 04/15/2015, 06/04/2014, 05/25/2012, 05/22/2011, 05/09/2010 Influenza (IM) W/Pres 04/29/2016 PNEUMOCOCCAL POLYSACCHARIDE VACCINE 01/19/2019 Pneumococcal Conjugate(13 Valent) 06/21/2019 TDAP Vaccine 03/28/2009 ZOSTER (ZOSTAVAX) VACCINE 12/09/2013 documented as of this encounter Social History Tobacco Use Types Packs/Day Years Used Date Never Smoker Smokeless Tobacco: Never Used Alcohol Use Drinks/Week oz/Week Comments Yes occasional Sex Assigned at Date Recorded Not on file Job Start Date Occupation Industry Not on file Not on file Not on file Travel History Travel Start Travel End No recent travel history available. documented as of this encounter Last Filed Vital Signs Vital Sign Reading Time Taken Comments Blood Pressure 110/70 06/21/2019 10:09 AM EST Pulse 60 06/21/2019 10:09 AM EST Temperature - - Respiratory Rate - - Oxygen Saturation - - Inhaled Oxygen Concentration - - Weight 70.3 kg (155 lb) 06/21/2019 10:09 AM EST Height 167.6 cm (5' 6") 06/21/2019 10:09 AM EST Body Mass Index 25.02 06/21/2019 10:09 AM EST documented in this encounter Patient Instructions Patient InstructionsPawel Singh MD - 06/21/2019 10:20 AM ESTLow risk for surgery ECG normal and sent to Dr Fagan Stay on citalopram up to and on the day of surgery Stop fish oil one week prior to surgery You are very healthy prevnar pneumonia booster vaccine today documented in this encounter Progress Notes Pawel Singh MD - 06/21/2019 10:20 AM EST PATIENT: Татьяна Nelson : 1955 DATE OF SERVICE: 06/21/2019 Subjective SUBJECTIVE: Татьяна Nelson is a 63-y.o. female who presents to the office today for a preoperative consultation at the request of Rylan, who will perform a left total knee replacement on 07/14/2019. Patient complains of cardiac symptoms: none. Patient denies cardiac symptoms: none. Past history of pulmonary embolism/deep vein thrombosis: no. There is a history of bleeding complications: no Past history of anesthetic problem: no. Exercise capacity: Can you walk 2 blocks on level ground, or carry 2 bags of groceries up 2 flights of stairs? Yes Count the number of risk factors in the revised Arauz cardiac risk index. ( RCRI): 0 High risk procedure: eg vascular surgery, any open intraperitoneal or intrathoracic 0 History of ischemic heart disease (history of IA or a positive exercise test , current complaint of chest pain considered to be secondary to myocardial ischemia, use of nitrate therapy, or ECG with pathological Q waves; do not count prior coronary revascularization procedure unless one of the other criteria for ischemic heart disease is present) 0 Hx of CHF, either systolic or diastolic 0 History of cerebrovascular disease (TIA or Stroke) 0 Diabetes mellitus requiring treatment with insulin 0 Preoperative serum creatinine >2.0 mg/dl The risk of cardiac , nonfatal myocardial infarction, and nonfatal cardiac arrest according to the number of above risk predictors is estimated to be: No risk factors - 0.4 percent (95% CI: 0.1 - 0.8) Screening for sleep apnea: Stop-Bang 0 Snoring: Do you snore loudly (louder than talking or heard through closed doors)? 0 Tired: Do you often feel tired, fatigued, or sleepy during the day? 0 Observed: Has anyone observed you stop breathing during your sleep? 0 Pressure: Do you have or are you being treated for high blood pressure? 0 BMI: >35 kg/m2? 1 Age: >50? 0 Neck circumference: >40 cm? 0 Gender: Male? Patient Active Problem List Diagnosis Date Noted Recurrent genital herpes 01/11/2019 Mixed hyperlipidemia 10/05/2018 Primary osteoarthritis of right knee 12/29/2017 Primary osteoarthritis of both knees 04/29/2016 Chronic nonallergic rhinitis 03/29/2013 Dysthymic disorder 02/03/2008 Esophageal reflux 07/27/2007 Family history of colon cancer 07/27/2007 Mom age 74, age 77. 4 siblings have colon polyps-all older than patient. Colonoscopy normal 2001 [facility] Past Medical History: Diagnosis Date Eczema Enthesopathy of elbow, unspecified 07/27/2007 Esophageal reflux 07/27/2007 Family history of colon cancer 07/27/2007 Other atopic dermatitis and related conditions 07/27/2007 Family History Problem Relation Age of Onset Diabetes Mother Colon Cancer Mother Prostate Cancer Brother Anesth Problems No family history Arthritis No family history Cancer No family history Clotting Disorder No family history Heart Disease No family history Hypertension No family history Kidney Disease No family history Thyroid Disease No family history Current Outpatient Medications Medication Sig acetaminophen (TYLENOL) 325 MG Oral Tab Take 650 mg by mouth NEEDED for Pain. citalopram (CELEXA) 40 MG Oral Tab TAKE 1 TABLET BY MOUTH EVERY DAY docusate sodium (COLACE) 100 MG Oral Cap Take 100 mg by mouth DAILY. Emollient (CERAVE) Apply externally Lotion 1 Appl by Apply externally route Continuous prn. FLUOCINOLONE ACETONIDE SCALP 0.01 % Apply externally Oil 1 Dose by Apply externally route NEEDED (itchy scalp). GLUCOSAMINE CHONDROITIN PO TABS DAILY. Multiple Vitamins-Minerals (MULTIVITAMIN ADULT PO) Take 1 Each by mouth DAILY. [place]-3 Fatty Acids (FISH OIL) 1000 MG Oral Cap Take 4 Each by mouth DAILY. oxycodone-acetaminophen (ROXICET) 5-325 MG/5ML Oral Solution Take 1 Tab by mouth NEEDED. trimethoprim-polymyxin B (POLYTRIM) 74893-2.1 UNIT/ML-% Ophthalmic Solution Place 2 Drops in right eye FOUR TIMES DAILY. Use for 5-7 days. TURMERIC PO Take by mouth. VALacyclovir 1 g Oral Tab Take 1 Tab by mouth TWICE DAILY. No current facility-administered medications for this visit. Allergies Allergen Reactions Clindamycin Swelling Facial/tongue swelling Nickel [Metals] Rash Social History Socioeconomic History Marital status: Spouse name: Not on file Number of children: Not on file Years of education: Not on file Highest education level: Not on file Occupational History Not on file Social Needs Financial resource strain: Not on file Food insecurity: Worry: Not on file Inability: Not on file Transportation needs: Medical: Not on file Non-medical: Not on file Tobacco Use Smoking status: Never Smoker Smokeless tobacco: Never Used Substance and Sexual Activity Alcohol use: Yes Comment: occasional Drug use: Yes Comment: marijuana sev times/wk Sexual activity: Yes Partners: Male Lifestyle Physical activity: Days per week: Not on file Minutes per session: Not on file Stress: Not on file Relationships Social connections: Talks on phone: Not on file Gets together: Not on file Attends mosque service: Not on file Active member of club or organization: Not on file Attends meetings of clubs or organizations: Not on file Relationship status: Not on file Intimate partner violence: Fear of current or ex partner: Not on file Emotionally abused: Not on file Physically abused: Not on file Forced sexual activity: Not on file Other Topics Concern Back Care Not Asked Bike Helmet Not Asked Blood Transfusions Not Asked Caffeine Concern Yes Comment: 1 soda/ day Exercise Yes Comment: swim/gym workout 4/wk Hobby Hazards Not Asked International Travel Not Asked Service Not Asked Occupational Exposure Not Asked Seat Belt Not Asked Self-Exams Not Asked Sleep Concern No Special Diet No Stress Concern Yes Weight Concern No Social History Narrative Lives in [facility] 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 Objective OBJECTIVE: BP 110/70 | Pulse 60 | Ht 5' 6" (1.676 m) | Wt 155 lb (70.3 kg) | BMI 25.02 kg/m The physical exam is generally normal. Patient appears well, alert and oriented x 3, pleasant, cooperative. Vitals are as noted. Neck supple and free of adenopathy, or masses. No thyromegaly. JOSEPH. Ears, throat are normal. Lungs are clear to auscultation. Heart sounds are normal, no murmurs, clicks, gallops or rubs. Abdomen is soft, no tenderness, masses or organomegaly. Extremities are normal. Peripheral pulses are normal. Screening neurological exam is normal without focal findings. Skin is normal without suspicious lesions noted. ECG reviewed and signed: no acute changes. ASSESSMENT: No contraindications to planned surgery 1. Preop examination Clinical predictors: The RCRI score is: 0 Respiratory risk: low Anticoagulation: The patient is not on anti-platelet agents. Plan PLAN: 1. Patient requires endocarditis prophylaxis: no. 2. Recommend perioperative beta-rubi: no. 3. Patient requires perioperative deep vein thrombosis prophylaxis: yes. 4. General preoperative instructions for patient. Proceed with surgery as planned. No food or liquids the morning of surgery. Call surgeon if develop respiratory illness, fever, or other illness. Letter sent to requesting surgeon listed above. Written preoperative instructions given.. Patient Instructions Low risk for surgery ECG normal and sent to Dr Fagan Stay on citalopram up to and on the day of surgery Stop fish oil one week prior to surgery You are very healthy prevnar pneumonia booster vaccine today Author: Pawel Singh MD 06/21/2019 17:27 documented in this encounter Plan of Treatment Name Type Priority Associated Diagnoses Order Schedule AMBULATORY 12 LEAD EKG EKG Routine Preop examination Ordered: 06/21/2019 (GLOBAL) Health Maintenance Due Date Last Done Comments MEDICARE ANNUAL WELLNESS 1955 VISIT ZOSTER IMMUNIZATION SERIES 02/03/2014 12/09/2013 (2 of 3) DIABETES SCREENING 11/19/2018 11/19/2017, 08/15/2014, 09/30/2001, Additional history exists FALL RISK ASSESSMENT 2018 INFLUENZA VACCINE (#1) 2019 05/23/2018, 08/25/2017, 04/29/2016, Additional history exists DEPRESSION SCREENING 08/26/2019 08/26/2018 OSTEOPOROSIS SCREENING 10/30/2019 10/29/2009 MAMMOGRAM (SCREENING) 2019 11/30/2018, 11/19/2017, 11/13/2016, Additional history exists PNEUMOCOCCAL 65+YRS (1 of 2 01/20/2020 - PCV13) LIPID DISORDER SCREENING 11/19/2022 11/19/2017, 10/18/2009, 04/17/2009, Additional history exists Colonoscopy 03/22/2024 03/22/2019, 12/21/2013, 10/18/2009, Additional history exists HPV IMMUNIZATION SERIES Aged Out No longer eligible based on patient's age to complete this topic MENINGOCOCCAL VACCINE IMM Aged Out No longer eligible based on patient's age to complete this topic documented as of this encounter Goals Goal Patient Goal Associated Recent Patient-Stated? Author Type Problems Progress Depression Depression No marco Ochoa (PHQ-9) MD Marcello total score < 5 Note: This is an individualized treatment (depression) goal for Татьяна Nelson: Displayed above is your goal for a depression screening (PHQ-9) score that would indicate good control of your depression. Keep a regular sleep schedule Lifestyle No Marcello Ochoa MD Note: This is an individualized lifestyle goal for Татьяна Nelson: Please maintain a regular sleep schedule. This may help with some symptoms of depression. Take all prescribed medications as directed Self-management No Marcello Ochoa MD Note: This is an individualized self-management goal for Татьяна Nelson: Please take all prescribed medications as directed. 1. Do not skip doses. If you cannot afford your medications, talk with your doctor. 2. Use a pill reminder system such as a pill box if needed. Your pharmacist can help you with this. 3. Contact your Pharmacy 5 days before your medication runs out. If you cannot take your medications for any reasons, talk with your doctor. 4. Please bring all of your medication bottles and inhalers (or a list of all your medications/inhalers) with you to every visit. Potential barriers to meeting all of your care plan goals will continue to be addressed on an ongoing basis. documented as of this encounter Results Not on filedocumented in this encounter Visit Diagnoses Diagnosis Preop examination - Primary Preoperative examination, unspecified documented in this encounter Insurance Payer Benefit Plan / Subscriber ID Effective Dates Phone Address Type Group MEDICARE MEDICARE PART A & xxxxxxxxxxx 2018-Present Medicare B [facility] xxxxxxxxxxx 2018-Present [facility] sintia Vásquez (Home) [address] [phone] [place], [place] (Work) [id number] documented as of this encounter Advance Directives Type Date Recorded Patient [employer] Explanation Advance Directives 04/13/2019 8:26 AM HEALTH CARE PROXY
[2019-07-14] MEDS ORDERED: Ibuprofen TAB* 600 MG ONE (10:28)
[2019-07-14] MEDS ORDERED: Gabapentin CAP(*) 300 MG ONE (10:29)
[2019-07-14] MEDS ORDERED: ceFAZolin 2 GM in NS PREMIX(*) 2 GM/100 ML BAG IVPB ONE (10:29)
[2019-07-14] MEDS ORDERED: Famotidine IV* 10 MG/ML 2 ML (20 mg) ONE (10:29)
[2019-07-14] MEDS ORDERED: Acetaminophen TAB* 325 MG ONE (10:29)
[2019-07-14] MEDS ORDERED: Buffered Lidocaine 1% SYRIN* 1 ML/SYRINGE INTRADERM ONE (11:10)
[2019-07-14] MEDS ORDERED: Midazolam* 1 MG/ML 5 ML VIAL (5 MG) ONE (11:22)
[2019-07-14] MEDS ORDERED: fentaNYL* 50 MCG/ML 2 ML VIAL (100 MCG VIAL) ONE (11:22)
[2019-07-14] MEDS ORDERED: ROPIVACAINE 5 MG/ML 30 ML BTL (0.5%) ONE ×2 (11:24→15:05)
[2019-07-14] MEDS ORDERED: Propofol* 10 MG/ML 20 ML BTL ONE ×2 (13:45)
[2019-07-14] MEDS ORDERED: EPHEDrine (Pressors)* 50 MG/ML VIAL ONE (13:45)
[2019-07-14] MEDS ORDERED: Naloxone* 0.4 MG/ML 1 ML VIAL IV PRN (15:43)
[2019-07-14] MEDS ORDERED: Acetaminophen TAB* 325 MG PO PRN ×2 (15:43→20:00)
[2019-07-14] MEDS ORDERED: Ondansetron INJ* 2 MG/ML VIAL IV PRN ×2 (15:43→16:06)
[2019-07-14] MEDS ORDERED: HYDROmorphone INJ1* 1 MG/ML SYRINGE IV PRN (15:43)
[2019-07-14] MEDS ORDERED: Cyclobenzaprine TAB* 10 MG PO PRN (16:06)
[2019-07-14] MEDS ORDERED: Morphine INJ* 2 MG/ML 1 ML SYRINGE (TWO MG - NEW SYRINGE VERSION) IV PRN (16:06)
[2019-07-14] MEDS ORDERED: diPHENhydraMINE IV* 50 MG/ML 1 ml VIAL (BENADRYL) IV PRN (16:06)
[2019-07-14] MEDS ORDERED: Magnesium Hydroxide LIQ* 30 ML UDC PO PRN (16:06)
[2019-07-14] MEDS ORDERED: diPHENhydraMINE PO* 25 MG PO PRN (16:06)
[2019-07-14] MEDS ORDERED: Ondansetron ODT TAB* 4 MG PO PRN (16:06)
[2019-07-14] MEDS ORDERED: [UNRECOGNIZED DRUG - OTHER] PO PRN (16:09)
[2019-07-14] MEDS ORDERED: oxyCODONE/Acetamin 5/325 MG* TAB ONE (17:23)
[2019-07-14] MEDS: oxyCODONE/Acetamin 5/325 MG* TAB PO PRN (17:24)
[2019-07-14] MEDS ORDERED: Carisoprodol TAB* 350 MG PO PRN (18:09)
[2019-07-14] MEDS ORDERED: PROCHLORPERAZINE INJ 5 MG/ML 2 ML VIAL IV PRN (18:11)
[2019-07-14] MEDS: Lactated Ringers 1000 ML Bag* 1,000 ML IV SCH (18:27)
--- NOTE | 2019-07-14 19:53 | OP ---
Operative Report - Blank - Operative Report Date of Operation: 07/14/19 Note: LUIS SARMIENTO 1955 Date of Surgery: 07/14/19 Jessie Fagan MD Outsole Splicer: Yovana KWON did help throughout the procedure with preparation of the knee, wound retraction, manipulation of the knee, and wound closure. Anesthesiologist: Dr. Rice Anesthesia Type: Spinal Preoperative Diagnosis: Left severe degenerative osteoarthritis of the knee Postoperative Diagnosis: As above Procedure Performed: Left Total Knee Arthroplasty Tourniquet time: 50 minutes Complications: None Specimen: Bone and cartilage from the left knee joint sent to pathology. Hardware Used: Cemented Escalante and Nephew total knee hardware was used - For the femur a size 5 narrow left oxinium legion posterior stabilized femoral component , for the tibia a size 4 left arabella II tibial baseplate, for the insert a size 11mm 3-4 posterior stabilized articular polyethylene insert, and for the patella a size 32 3-peg all poly patella. Brief History/Indication: LUIS SARMIENTO was known in clinic and had a history of severe left knee pain and swelling. She failed conservative treatment with anti-inflammatories, pain pills, intra-articular injections and physical therapy. She elected to undergo left total knee arthroplasty due to continued pain and decreased quality of life. Radiographs showed severe end stage osteoarthritis of the knee with bone on bone contact. Informed consent was obtained from the patient. She understood the risks of surgery included but were not limited to: bleeding, infection, damage to nearby structures, intraoperative fracture, nerve palsy, failure of the hardware, early loosening, knee stiffness or loss of motion, anesthesia complications, stroke, heart attack , blood clot and . She wished to proceed. Intra-Operative Findings: Intraoperatively the patient was noted to have severe loss of cartilage in all 3 compartments of the knee. Description of the Procedure: LUIS SARMIENTO was identified in the preanesthesia unit. Her left knee was marked as the correct operative side. Informed consent was signed and placed in the chart. The patient was taken to the operating room and placed under anesthesia without complication. A felix catheter was placed. A tourniquet was placed on the left thigh. The left lower extremity was prepped and draped in the usual sterile fashion. Preoperative time-out was made to correctly identify the patient, side and site. Appropriate intraoperative antibiotics were given within one hour of incision. Tourniquet was inflated. A midline incision was made and carried sharply down to the extensor mechanism. A new 10 blade was used to make a standard medial parapatellar arthrotomy. The patella was subluxed laterally. Electrocautery was used to dissect soft tissue off the superomedial tibia to the midsagittal plane. The knee was flexed up. The anterior horn of the lateral meniscus and the ACL were sharply incised. A drill was used to enter the distal femur. The intramedullary distal femoral cutting guide was pinned on the distal femur. The oscillating saw was used to make the distal femoral cut. The external rotation guide was pinned on the distal femur and the distal femur was sized to a size 5. The size 5 multi-cutting jig was pinned on the distal femur. The oscillating saw was used to make the appropriate 4 chamfer cuts. Next the PCL was completely released. The extramedullary tibial cutting guide was pinned on the proximal tibia and the oscillating saw was used to make the proximal tibial cut perpendicular to the mechanical axis of the tibia. The bone was carefully removed. The knee was brought out into full extension. The spacer block was placed and had excellent fit with the knee in full extension. The medial and lateral ligaments were well balanced. The flexion and extension gaps were well balanced. The knee was flexed up. Lamina affirmative action specialist was placed both medially and laterally. Any remaining meniscus was removed with electrocautery. Curved osteotome was used to remove any posterior osteophytes. The tibial tray and drop jeramie were placed and confirmed a satisfactory tibial cut. The size 5 left narrow femoral trial was impacted onto the distal femur. This trial had excellent fit and stability. The box for the posterior stabilized implant was prepared using a box cut osteotome and a reamer. Next a tibial tray trial and 11 mm insert trial was placed. The knee was taken through a range of motion and had full extension to 130 degrees of flexion. Patellofemoral tracking was satisfactory. The patella was inverted and sized to a size 32. Three peg holes were drilled through the size 32 drill guide. The trial patella was placed and the knee was taken through a range of motion. There was satisfactory patellofemoral tracking. All trials were removed. The tibia was subluxed anteriorly and sized to a size 4. The proximal tibial was prepared with a size 4 keel punch. All bony cut surfaces were irrigated with sterile saline and dried. Final implants were cemented into place starting with the tibia, followed by the femur, and last the patella. A 9 mm insert trial was placed and the knee was brought into full extension. Tourniquet was turned down and the knee was copiously irrigated with sterile saline. Electrocautery was used to obtain meticulous hemostasis. Once the cement had fully cured, the insert trial was removed. Any excess cement was removed from around the hardware and capsule. Final insert chosen was a 11 mm posterior stabilized Arabella II articular insert size 3-4. Stability of the insert was checked and noted to be stable. The extensor mechanism was closed using number 1 vicryls. The rest of the incision was closed in a layered fashion using 0 and 2-0 vicryls. The skin was closed using 3-0 nylon suture. Sterile xeroform, 4x4s and webril were used to cover the incision. Arnulfo wrap and cold pack were used to cover the dressings. The patients anesthesia was reversed without difficulty. She was taken to the PACU in stable condition. Intended weight-bearing will be as tolerated.
[2019-07-14] MEDS: oxyCODONE TAB* 5 MG TAB PO PRN (20:10)
[2019-07-14] MEDS: Docusate CAP* 100 MG PO SCH (21:57)
[2019-07-14] MEDS: ceFAZolin 1 GM ADVAN(*) 1 GM in NS 0.9% 50 ML* 50 ML IVPB SCH (21:57)
[2019-07-14] MEDS: Magnesium Hydroxide LIQ* 30 ML UDC PO SCH (21:57)
[2019-07-15] MEDS: oxyCODONE/Acetamin 5/325 MG* TAB PO PRN ×3 (00:08→13:42)
[2019-07-15] MEDS: ceFAZolin 1 GM ADVAN(*) 1 GM in NS 0.9% 50 ML* 50 ML IVPB SCH ×2 (04:59→12:54)
[2019-07-15] MEDS: Lactated Ringers 1000 ML Bag* 1,000 ML IV SCH (05:04)
[2019-07-15 05:11] LABS: Hematocrit 31 % (35-47); Hemoglobin 10.9 g/dL (12.0-16.0); Mean Platelet Volume 7.6 fL (7.4-10.4); Platelet Count 172 10^3/uL (150-450)
[2019-07-15 05:30] LABS: BUN/Creatinine Ratio 28.2 (8-20); Calcium 8.1 mg/dL (8.6-10.3); EGFR African American 199.6 (>60); EGFR Non-African American 164.9 (>60); Potassium 4.1 mmol/L (3.5-5.0)
[2019-07-15] MEDS: oxyCODONE TAB* 5 MG TAB PO PRN ×3 (07:22→16:39)
[2019-07-15] MEDS ORDERED: Vitamin THERAPEUTIC TAB PO SCH (09:00)
[2019-07-15] MEDS ORDERED: Citalopram TAB* 40 MG PO SCH (09:00)
[2019-07-15] MEDS ORDERED: Apixaban* 2.5 MG TAB PO SCH (09:00)
[2019-07-15] MEDS ORDERED: Calcium Carbonate CHEW TAB* 500 MG (TUMS) PO SCH (09:00)
[2019-07-15] MEDS ORDERED: Influenza VAC *QUAD* 2019-20* 0.5 ML SYRINGE IM ONE (09:00)
[2019-07-15] MEDS: Magnesium Hydroxide LIQ* 30 ML UDC PO SCH (09:12)
[2019-07-15] MEDS: Docusate CAP* 100 MG PO SCH (09:12)
--- NOTE | 2019-07-15 13:17 | PN ---
Progress Note - Progress Note Date of Service: 07/15/19 SOAP: Subjective: [Pt was seen this morning sitting up in chair. States that she feels well. Has done PT without any issue this morning. Pain is well controlled. Denies any fevers, chills, night sweats. ] Objective: [General: pt is alert and oriented x3. NAD. MSK, LLE: dressing is c/d/i. dressing changed. incision is c/d/i. +df/pf. Calf soft and non tender. 2+ dp pusle. NVI intact. ] Vital Signs Temp 97.5 F 07/15/19 11:35 Pulse 63 07/15/19 11:35 Resp 18 07/15/19 11:38 BP 112/64 07/15/19 12:23 Pulse Ox 96 07/15/19 11:35 Intake & Output 07/14/19 07/15/19 07/15/19 18:59 06:59 18:59 Intake Total 1300 2404 1165 Output Total 1175 650 600 Balance 125 1754 565 Weight 155 lb Intake: IV Fluids 1300 946 248 LR 1300 946 248 IVPB 58 57 ABX - CEFAZOLIN 58 57 Oral 1400 860 Output: Urine 600 Looney 1125 650 Estimated Blood Loss 50 Other: Estimated Blood Loss less than Comment Laboratory Last Values Hgb 10.9 g/dL (12.0-16.0) L 07/15/19 04:46 Hct 31 % (35-47) L 07/15/19 04:46 Plt Count 172 10^3/uL (150-450) 07/15/19 04:46 MPV 7.6 fL (7.4-10.4) 07/15/19 04:46 Sodium 134 mmol/L (135-145) L 07/15/19 04:46 Potassium 4.1 mmol/L (3.5-5.0) 07/15/19 04:46 Chloride 102 mmol/L (101-111) 07/15/19 04:46 Carbon Dioxide 28 mmol/L (22-32) 07/15/19 04:46 Anion Gap 4 mmol/L (2-11) 07/15/19 04:46 BUN 11 mg/dL (6-24) 07/15/19 04:46 Creatinine 0.39 mg/dL (0.51-0.95) L 07/15/19 04:46 Est GFR ( Amer) 199.6 (>60) 07/15/19 04:46 Est GFR (Non-Af Amer) 164.9 (>60) 07/15/19 04:46 BUN/Creatinine Ratio 28.2 (8-20) H 07/15/19 04:46 Glucose 156 mg/dL (70-100) H 07/15/19 04:46 Calcium 8.1 mg/dL (8.6-10.3) L 07/15/19 04:46 Assessment: [POD 1 LTKA] Plan: [The pt has lab values that are decreased today. Creatinine - 0.39. Pt has had past values from 0.47 to 0.49. She is asymptomatic at this point. We will have her follow up with her PCP within a few days. Calcium - Calcium carbonate given to the pt today. Will follow up with PCP to re-evaluate Continue with eliquis bid x 30 days Pain medication as needed PT Possible DC today. ]
--- NOTE | 2019-07-15 13:18 | DS ---
Orthopedic Discharge Summary - Discharge Summary Date of Admission:07/14/19 Date of Discharge: 07/15/2019 Date of Surgery: 07/14/2019 Attending Orthopedic Provider: Dr. Fagan Pre-operative Diagnosis: Left knee osteoarthritis Operative Procedure: Left total knee arthroplasty Disposition of Patient: Home Condition of Patient: Good History: LUIS SARMIENTO is a 63 year old F with years of increasingly severe left knee pain. Patient has failed conservative management and has elected to undergo a left total knee replacement Hospital Course: LUIS was admitted to [facility] on 07/14/19. Patient underwent a left total knee arthroplasty without complication followed by a brief recovery in PACU and transfer to the Short Stay Surgical Unit in stable condition. Our hospitalist service, physical therapy and occupational therapy also participated in this patients care. Post-op day 1: patient was alert and in no acute distress. Dressing was clean, dry and intact. Operative extremity dorsiflexion and plantarflexion intact, sensation intact to light touch distally, DP2+. Dressing was changed, incision was clean, dry and intact. Patient was deemed to be medically and orthopedically stable for discharge. Physical therapy goals were met. Home Medications Medication Instructions Recorded Confirmed Type Citalopram TAB* [Celexa TAB*] 40 mg PO QAM 12/30/07/14/19 History Glucosam/Chondr/Collagn/Hyalur 1 cap PO QAM 01/21/19 07/14/19 History [Glucosamine & Chondroitin Cap] Sedaplex 2 Capsules 2 cap PO BEDTIME PRN 01/21/19 07/14/19 History Ceramides 1,3,6-11 [Cerave] 1 applic TOPICAL BID PRN 02/18/19 07/14/19 History Fluocinolone Acetonide 1 applic TOPICAL DAILY PRN 02/18/19 07/14/19 History Multivitamins/Minerals TAB* 1 tab PO QAM 02/18/19 07/14/19 History [Theragran/minerals TAB*] Fish Oil (NF) 1 tab PO QAM 06/29/19 07/14/19 History Ibuprofen TAB* [Motrin TAB* 400 MG] 400 mg PO Q6H PRN 06/29/19 07/14/19 History T-Relief Pain Relief Creme 1 applic TOPICAL QID PRN 12/18/19 01/02/20 History Discharge Instructions following Orthopedic Surgery: Activity: * Weight Bearing as tolerated * Continue physical therapy and occupational therapy exercises as shown Wound care: * OK to shower on post-op day 3, no bathing, swimming, or submerging wound. * Use gentle soap, pat dry. Cover with gauze, DRAKE wrap or tape. * Visiting home nurse to do wound checks. Call Orthopedic office for: * Increased drainage * Redness * Increased pain * Fever Go to ER with shortness of breath or chest pain. Diet: * Regular diet * Increase fluids and fiber to prevent constipation. * Continue to use stool softeners, call office if no bowel motion within 48 hours. Medications See Home Medication List in your packet for medications that you should take after discharge. DVT Prophylaxis: Eliquis Dosin.5 mg, 1 tab every 12 hours x 30 days Pain Control: Percocet Dosin/325 mg 1-2 tabs by mouth every 4-6 hours as needed for pain. Maximum of 10 tabs per day. Please note that Percocet contains Tylenol (acetaminophen). Maximum daily dose of Tylenol is 4000 mg from all sources. Antibiotics are required prior to any dental work. FOLLOW UP: Follow up with [Rylan] Within 10-14 days, call for appointment Please call our office with any questions or concerns ([phone]) You had lab values that were decreased today. Please follow up with your PCP in the next few days to re-evaluate this. Creatinine - 0.39. Pt has had past values from 0.47 to 0.49. She is asymptomatic at this point. We will have her follow up with her PCP within a few days. Calcium - Calcium carbonate given to the pt today. Will follow up with PCP to re-evaluate
[2019-07-15 16:12] VITALS: BP 135/62
[2019-07-16] MEDS ORDERED: Bisacodyl SUPP* 10 MG SUPP PR PRN (16:07)
== END 2019-07-15 18:05 | disposition home health service (06) | DRG 470 ==
LOC: AA 10:23 → SSU 16:07
PROVIDERS: ADMIT Orthopaedic Surgery Adult Reconstructive Orthopaedic Surgery; ATTEND Orthopaedic Surgery Adult Reconstructive Orthopaedic Surgery
PROC: 0SRD069 Replacement of Left Knee Joint with Oxidized Zirconium on Polyethylene Synthetic Substitute, Cemented, Open Approach (ICD-10-PCS; principal; 2019-07-14 13:45)
DX: M17.12 Unilateral primary osteoarthritis, left knee (principal); K21.9 Gastro-esophageal reflux disease without esophagitis; Z96.651 Presence of right artificial knee joint; M25.462 Effusion, left knee; E78.2 Mixed hyperlipidemia; L20.9 Atopic dermatitis, unspecified; K57.90 Diverticulosis of intestine, part unspecified, without perforation or abscess without bleeding; F41.9 Anxiety disorder, unspecified; G25.81 Restless legs syndrome; G25.0 Essential tremor; M25.762 Osteophyte, left knee; Z79.899 Other long term (current) drug therapy; Z88.8 Allergy status to other drugs, medicaments and biological substances; Z88.1 Allergy status to other antibiotic agents; Z23 Encounter for immunization
CPT/HCPCS: 36415; 80048; 85014; 85018; 85049; 88305; 88311; 90686; A9270-GY; C1776; J0690; J0780; J2250; J2704; J2795; J3010

== ENCOUNTER 2019-08-02 06:35 | Emergency (ER) | payer MEDICARE ==
--- OUTSIDE RECORDS SUMMARY | 2019-08-02 06:48 | XMS REPORT ---
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 Active Renzo (current) (current) 07-14 Kraak use of use of [id number] non-steroid non-steroid al al anti-inflam anti-inflam matories matories (NSAID) (NSAID) Pain frequent Pain Mgmt Resolve 2019-07-22 Sofia pain d 1-04 15:15:00 (Deysi) 09:00: Christiansen [id number] Cardio edema Cardiovasc Resolve 2019-07-26 Sfoia ular d 1-04 10:05:00 (Deysi) 09:00: Christiansen [id number] Respiratory dyspnea Respirator Resolve 2019-07-19 Sofia present y d 1-04 09:00:00 (Deysi) 09:00: Christiansen [id number] Sensory impaired Sensory Resolve 2019-07-19 Sofia hearing d 1-04 09:00:00 (Deysi) 09:00: Christiansen [id number] Integument surgical Integument Resolve 2019-07-26 Sofia wound d 1-04 10:05:00 (Deysi) present 09:00: Christiansen [id number] Integument skin Integument Resolve 2019-07-26 Sofia integrity d 1-04 10:05:00 (Deysi) risk 09:00: Christiansen 00 [id number] Elimination urinary Eliminatio Resolve 2019-07-19 Sofia incontinenc n d 1-04 09:00:00 (Deysi) e 09:00: Christiansen 00 [id number] Neuro confusion Neuro/Emot Resolve 2019-07-19 Sofia present ion d 1-04 09:00:00 (Deyis) 09:00: Christiansen [id number] Activity ADL Activity Resolve 2019-07-19 Sofia assistance d 1-04 09:00:00 (Deysi) required 09:00: Christiansen [id number] Activity self-care Activity Resolve 2019-07-19 Sofia deficit d -04 09:00:00 (Deysi) 09:00: Christiansen 00 [id number] Safety fall risk Safety Resolve 2019-07-22 Sofia factor d 1-04 15:15:00 (Deysi) present 09:00: Christiansen [id number] Safety risk for Safety Resolve 2019-07-22 Sofia hospitaliza d -04 15:15:00 (Deysi) tion 09:00: Christiansen [id number] Medication oral med Meds Resolve 2019-07-22 Sofia assistance d -04 15:15:00 (Deysi) required 09:00: Christiansen 00 [id number] Musculoskel transfer Musculoske Resolve 2019-07-22 Sofia etal assistance letal d -04 15:15:00 (Deysi) required 09:00: Christiansen [id number] Musculoskel requires Musculoske Resolve 2019-07-22 Sofia etal human letal d -04 15:15:00 (Deysi) assist to 09:00: Christiansen leave home 00 [id number] ROM ROM PT: ROM Resolve 2019-07-29 Renzo deficit: LE d 07-18 09:15:00 Kraak 10:45: [id number] Strength/To strength PT: Resolve 2019-07-29 Renzo ne/Motor deficit: LE Strength d - 09:15:00 Kraak Control 10:45: [id number] Balance/End balance/svp digital sales food & cooking PT/OT: Resolve 2019-07-29 Renzo urance rdination Balance/En d 07-18 09:15:00 Kraak deficit durance 10:45: [id number] Balance/End endurance PT/OT: Resolve 2019-07-29 Renzo mckenzie deficit Balance/En d 07-18 09:15:00 Kraak durance 10:45: [id number] OT: Self self-care OT: Resolve 2019-07-29 Renzo Care deficit Self-Care d 07-18 09:15:00 Kraak 10:45: [id number] Gait/Locomo gait PT/OT: Resolve 2019-07-29 Renzo tion deficit Gait/Locom d 07-18 09:15:00 Kraak problems otion 10:45: [id number] Respiratory Incentive Respirator Resolve 2019-07-19 Nicolasa Spirometer y d 07-19 09:00:00 Vallely /Acapella 09:00: Device 00 treatments in home Endo/Odin anti-coagul Endo/Odin Resolve 2019-07-19 Nicolasa ation d 07-19 09:00:00 Vallely therapy 09:00: 00 Safety can be left Safety Resolve 2019-07-22 Nicolasa alone for d 07-19 15:15:00 Vallely only short 09:00: periods 00 Respiratory Incentive Respirator Resolve 2019-07-26 Sarai Spirometer y d 07-26 10:05:00 Malnoske /Acapella 10:05: RN Device 00 treatments in home Musculoskel requires Musculoske Resolve 2019-07-26 Sarai etal human letal d 07-26 10:05:00 Malnoske assist to 10:05: RN leave home 00 Allergies, Adverse Reactions, Alerts Allergy Name Allergy Status Severity Reaction(s) Onset Inactive Treating Comments Type Date Date Clinician nickel Base Active Unknown Reaction Interface Ingredient Unknown 02-03 clindamycin Base Active Unknown Reaction Lilia Beam Ingredient Unknown 07-15 Medications Ordered Filled Start Stop Current Ordering Indication Dosage Frequency Signature Comments Components Medication Medication Date Date Medication? Clinician (SIG) Name Name aspirin 325 aspirin 325 Yes Rylan Unknown Unknown mg tablet mg tablet 07-18 MD,Jessie docusate docusate 2019- Yes Rylan Unknown Unknown sodium 50 sodium 50 - MD,Jessie mg capsule mg capsule Percocet 5 Percocet 5 2019- Yes Rylan Unknown Unknown mg-325 mg mg-325 mg 07-19 MD,Jessie tablet tablet citalopram citalopram Yes Rylan Unknown Unknown 40 mg 40 mg 07-19 MD,Jessie tablet tablet Vital Signs Vital Name Observation Time Observation Value Comments SYSTOLIC mm[Hg] 2019-07-30 18:09:56 114 mm[Hg] mm[Hg] Method: Sit SYSTOLIC mm[Hg] 2019-07-18 18:09:44 122 mm[Hg] mm[Hg] Method: Stand DIASTOLIC mm[Hg] 2019-07-30 18:09:56 64 mm[Hg] mm[Hg] Method: Sit DIASTOLIC mm[Hg] 2019-07-18 18:09:44 60 mm[Hg] mm[Hg] Method: Stand PULSE 2019-07-30 18:09:56 64 /min /min Procedures This patient has no known procedures. Results This patient has no known results.
--- OUTSIDE RECORDS SUMMARY | 2019-08-02 06:48 | XMS REPORT ---
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 Diagnosis Active Sarai (current) (current) 07-14 Malnoske use of use of RN non-steroid non-steroid al al anti-inflam anti-inflam matories matories (NSAID) (NSAID) Pain frequent Pain Mgmt Resolve 2019-07-22 Sofia pain d 1-04 15:15:00 (Deysi) 09:00: Елена [id number] Cardio edema Cardiovasc Active Sofia ular 1- (Deysi) 09:00: Christiansen [id number] Respiratory dyspnea Respirator Resolve 2019-07-19 Sofia present y d 1-04 09:00:00 (Deysi) 09:00: Christiansen [id number] Sensory impaired Sensory Resolve 2019-07-19 Sofia hearing d 1-04 09:00:00 (Deysi) 09:00: Елена [id number] Integument surgical Integument Active Sofia wound 1-04 (Deysi) present 09:00: Christiansen [id number] Integument skin Integument Active Sofia integrity 1-04 (Deysi) risk 09:00: Елена [id number] Elimination urinary Eliminatio Resolve 2019-07-19 Sofia incontinenc n d 1-04 09:00:00 (Deysi) e 09:00: Christiansen [id number] Neuro confusion Neuro/Emot Resolve 2019-07-19 Sofia present ion d 1-04 09:00:00 (Deysi) 09:00: Christiansen [id number] Activity ADL Activity Resolve 2019-07-19 Sofia assistance d 1-04 09:00:00 (Deysi) required 09:00: Christiansen [id number] Activity self-care Activity Resolve 2019-07-19 Sofia deficit d 1-04 09:00:00 (Deysi) 09:00: Christiansen [id number] Safety fall risk Safety Resolve 2019-07-22 Sofia factor d 1-04 15:15:00 (Deysi) present 09:00: Christiansen [id number] Safety risk for Safety Resolve 2019-07-22 Sofia hospitaliza d 1-04 15:15:00 (Deysi) tion 09:00: Christiansen [id number] Medication oral med Meds Resolve 2019-07-22 Sofia assistance d 1-04 15:15:00 (Deysi) required 09:00: Christiansen [id number] Musculoskel transfer Musculoske Resolve 2019-07-22 Sofia etal assistance letal d -04 15:15:00 (Deysi) required 09:00: Christiansen [id number] Musculoskel requires Musculoske Resolve 2019-07-22 Sofia etal human letal d -04 15:15:00 (Deysi) assist to 09:00: Christiansen leave home 00 [id number] ROM ROM PT: ROM Active Renzo deficit: LE 1-06 Kraak 10:45: [id number] Strength/To strength PT: Active Renzo ne/Motor deficit: LE Strength 106 Kraak Control 10:45: [id number] Balance/End balance/dental scheduling coordinator PT/OT: Active Renzo urance rdination Balance/En 1- Kraak deficit durance 10:45: [id number] Balance/End endurance PT/OT: Active Renzo urance deficit Balance/En - Kraak durance 10:45: [id number] 00 OT: Self self-care OT: Active Renzo Care deficit Self-Care 07-18 Kraak 10:45: [id number] Gait/Locomo gait PT/OT: Active Renzo tion deficit Gait/Locom 07-18 Kraak problems otion 10:45: [id number] Respiratory Incentive Respirator Resolve 2019-07-19 Nicolasa Spirometer y d 07-19 09:00:00 Vallely /Acapella 09:00: Device 00 treatments in home Endo/Odin anti-coagul Endo/Odin Resolve 2019-07-19 Nicolasa ation d 07-19 09:00:00 Vallely therapy 09:00: 00 Safety can be left Safety Resolve 2019-07-22 Nicolasa alone for d 07-19 15:15:00 Vallely only short 09:00: periods 00 Allergies, Adverse Reactions, Alerts Allergy Name [...] Unknown Unknown mg tablet mg tablet 07-18 Jessie LEVI docusate docusate Yes Rylan Unknown Unknown sodium 50 sodium 50 07-19 Jessie LEVI mg capsule mg capsule Percocet 5 Percocet 5 Yes Rylan Unknown Unknown mg-325 mg mg-325 mg 07-19 Jessie LEVI tablet tablet citalopram citalopram Yes Rylan Unknown Unknown 40 mg 40 mg 07-19 Jessie LEVI tablet tablet Vital Signs Vital Name Observation Time Observation Value Comments SYSTOLIC mm[Hg] 2019-07-22 18:09:48 114 mm[Hg] mm[Hg] Method: Sit SYSTOLIC mm[Hg] 2019-07-18 18:09:44 122 mm[Hg] mm[Hg] Method: Stand DIASTOLIC mm[Hg] 2019-07-22 18:09:48 68 mm[Hg] mm[Hg] Method: Sit DIASTOLIC mm[Hg] 2019-07-18 18:09:44 60 mm[Hg] mm[Hg] Method: Stand PULSE 2019-07-22 18:09:48 67 /min /min RESP RATE 2019-07-22 18:09:48 16 /min /min TEMP 2019-07-22 18:09:48 97.6 [degF] Procedures This patient has no known procedures. Results This patient has no known results.
--- OUTSIDE RECORDS SUMMARY | 2019-08-02 06:48 | XMS REPORT ---
:1955 Author Organization [facility] Care Team Providers Name Role Phone Unavailable Unavailable Unavailable Problems Condition Condition Condition Status Onset Resolution Last Treating Comments Name Details Category Date Date Treatment Clinician Date Unilateral Unilateral Diagnosis Active Sarai primary primary 07-15 Malnoske osteoarthri osteoarthri RN tis, left tis, left knee knee Allergies, Adverse Reactions, Alerts Allergy Name Allergy Status Severity Reaction(s) Onset Inactive Treating Comments Type Date Date Clinician nickel Base Active Unknown Reaction Interface Ingredient Unknown 02-03 clindamycin Base Active Unknown Reaction Lilia Beam Ingredient Unknown 07-15 Medications Ordered Filled Start Stop Current Ordering Indication Dosage Frequency Signature Comments Components Medication Medication Date Date Medication? Clinician (SIG) Name Name No Known No Known No None None None Medications Medications For This For This Patient Patient Procedures This patient has no known procedures. Results This patient has no known results.
--- OUTSIDE RECORDS SUMMARY | 2019-08-02 06:48 | XMS REPORT ---
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 Diagnosis Active Renzo (current) (current) 07-14 Kraak use of use of [id number] non-steroid non-steroid al al anti-inflam anti-inflam matories matories (NSAID) (NSAID) Pain frequent Pain Mgmt Resolve 2019-07-22 Sofia pain d 1-04 15:15:00 (Deysi) 09:00: Christiansen [id number] Cardio edema Cardiovasc Resolve 2019-07-26 Sofia ular d 1-04 10:05:00 (Deysi) 09:00: Christiansen [id number] Respiratory dyspnea Respirator Resolve 2019-07-19 Sofia present y d 1-04 09:00:00 (Deysi) 09:00: Christiansen [id number] Sensory impaired Sensory Resolve 2019-07-19 Sofia hearing d 1-04 09:00:00 (Deysi) 09:00: Christiansen [id number] Integument surgical Integument Resolve 2019-07-26 Sofia wound d 1-04 10:05:00 (Deysi) present 09:00: Christiansen [id number] Integument skin Integument Resolve 2019-07-26 Sofia integrity d 1-04 10:05:00 (Deysi) risk 09:00: Christiansen 00 [id number] Elimination urinary Eliminatio Resolve 2019-07-19 Sofia incontinenc n d -04 09:00:00 (Deysi) e 09:00: Christiansen [id number] Neuro confusion Neuro/Emot Resolve 2019-07-19 Sofia present ion d -04 09:00:00 (Deysi) 09:00: Christiansen [id number] Activity ADL Activity Resolve 2019-07-19 Sofia assistance d -04 09:00:00 (Deysi) required 09:00: Christiansen [id number] Activity self-care Activity Resolve 2019-07-19 Sofia deficit d -04 09:00:00 (Deysi) 09:00: Christiansen 00 [id number] Safety fall risk Safety Resolve 2019-07-22 Sofia factor d -04 15:15:00 (Deysi) present 09:00: Christiansen [id number] Safety risk for Safety Resolve 2019-07-22 Sofia hospitaliza d -04 15:15:00 (Deysi) tion 09:00: Christiansen [id number] Medication oral med Meds Resolve 2019-07-22 Sofia assistance d -04 15:15:00 (Deysi) required 09:00: Christiansen [id number] Musculoskel transfer Musculoske Resolve 2019-07-22 Sofia etal assistance letal d -04 15:15:00 (Deysi) required 09:00: Christiansen [id number] Musculoskel requires Musculoske Resolve 2019-07-22 Sofia etal human letal d -04 15:15:00 (Deysi) assist to 09:00: Christiansen leave home 00 [id number] ROM ROM PT: ROM Active Renzo deficit: LE - Kraak 10:45: [id number] Strength/To strength PT: Active Renzo ne/Motor deficit: LE Strength 07-18 Kraak Control 10:45: [id number] Balance/End balance/dental patient coordinator PT/OT: Active Renzo urance rdination Balance/En 07-18 Kraak deficit durance 10:45: [id number] Balance/End endurance PT/OT: Active Renzo urance deficit Balance/En 07-18 Kraak durance 10:45: [id number] 00 OT: Self self-care OT: Active Renzo Care deficit Self-Care 07-18 Kraak 10:45: [id number] Gait/Locomo gait PT/OT: Active Renzo tion deficit Gait/Locom 07-18 Kraak problems otion 10:45: [id number] Respiratory Incentive Respirator Resolve 2019-07-19 Nicolasa [...] Rylan Unknown Unknown 40 mg 40 mg 1-07 Jessie LEVI tablet tablet Vital Signs Vital Name Observation Time Observation Value Comments SYSTOLIC mm[Hg] 2019-07-26 18:09:52 122 mm[Hg] mm[Hg] Method: Sit SYSTOLIC mm[Hg] 2019-07-18 18:09:44 122 mm[Hg] mm[Hg] Method: Stand DIASTOLIC mm[Hg] 2019-07-26 18:09:52 72 mm[Hg] mm[Hg] Method: Sit DIASTOLIC mm[Hg] 2019-07-18 18:09:44 60 mm[Hg] mm[Hg] Method: Stand PULSE 2019-07-26 18:09:52 60 /min /min RESP RATE 2019-07-26 18:09:52 16 /min /min TEMP 2019-07-26 18:09:52 97.4 [degF] Procedures This patient has no known procedures. Results This patient has no known results.
--- OUTSIDE RECORDS SUMMARY | 2019-08-02 06:48 | XMS REPORT ---
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 director operations director Diagnosis Active Renzo (current) (current) 07-14 Kraak use of use of [id number] non-steroid non-steroid al al anti-inflam anti-inflam matories matories (NSAID) (NSAID) Pain frequent Pain Mgmt Resolve 2019-07-22 Sofia pain d 1-04 15:15:00 (Deysi) 09:00: Christiansen [id number] Cardio edema Cardiovasc Resolve 2019-07-26 Sofia ular d 1-04 10:05:00 (Deysi) 09:00: Christiansen [id number] Respiratory dyspnea Respirator Resolve 2019-07-19 Sofia present y d 1-04 09:00:00 (Deysi) 09:00: Christiansen [id number] Sensory impaired Sensory Resolve 2019-07-19 Sofia hearing d 1-04 09:00:00 (Deysi) 09:00: Christiansen [id number] Integument surgical Integument Resolve 2019-07-26 Sofia wound d 1-04 10:05:00 (Deysi) present 09:00: Christiansen [id number] Integument skin Integument Resolve 2019-07-26 Sofia integrity d 1-04 10:05:00 (Deysi) risk 09:00: Christiansen 00 [id number] Elimination urinary Eliminatio Resolve 2019-07-19 Sofia incontinenc n d 1-04 09:00:00 (Deysi) e 09:00: Christiansen 00 [id number] Neuro confusion Neuro/Emot Resolve 2019-07-19 Sofia present ion d 1-04 09:00:00 (Deysi) 09:00: Christiansen [id number] Activity ADL Activity Resolve 2019-07-19 Sofia assistance d 1-04 09:00:00 (Deysi) required 09:00: Christiansen [id number] Activity self-care Activity Resolve 2019-07-19 Sofia deficit d -04 09:00:00 (Deysi) 09:00: Christiansen 00 [id number] Safety fall risk Safety Resolve 2019-07-22 Sofia factor d 1-04 15:15:00 (Deysi) present 09:00: Christiansen [id number] Safety risk for Safety Resolve 2019-07-22 Sofia hospitaliza d -04 15:15:00 (Deysi) tion 09:00: Christiansen [id number] Medication oral med Meds Resolve 2019-07-22 Sofia assistance d -04 15:15:00 (Deysi) required 09:00: Christiansen 00 [id number] Musculoskel transfer Musculoske Resolve 2019-07-22 Sofia etal assistance letal d -04 15:15:00 (Deysi) required 09:00: Christiansen [id number] Musculoskel requires Musculoske Resolve 2019-07-22 Sofia etal human letal d -04 15:15:00 (Deysi) assist to 09:00: Christiansen leave home 00 [id number] ROM ROM PT: ROM Resolve 2019-07-29 Renzo deficit: LE d 07-18 09:15:00 Kraak 10:45: [id number] Strength/To strength PT: Resolve 2019-07-29 Renzo ne/Motor deficit: LE Strength d - 09:15:00 Kraak Control 10:45: [id number] Balance/End balance/case management coordinator PT/OT: Resolve 2019-07-29 Renzo urance rdination Balance/En d 07-18 09:15:00 Kraak deficit durance 10:45: [id number] Balance/End endurance PT/OT: Resolve 2019-07-29 Renzo mckenzie deficit Balance/En d 07-18 09:15:00 Kraak durance 10:45: [id number] 00 OT: Self self-care OT: Resolve 2019-07-29 Renzo Care deficit Self-Care d 07-18 09:15:00 Kraak 10:45: [id number] 00 Gait/Locomo gait PT/OT: Resolve 2019-07-29 Renzo tion deficit Gait/Locom d 07-18 09:15:00 Kraak problems otion 10:45: [id number] 00 Respiratory Incentive Respirator Resolve 2019-07-19 Nicolasa [...]
--- OUTSIDE RECORDS SUMMARY | 2019-08-02 06:48 | XMS REPORT ---
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 Diagnosis Active Sarai (current) (current) 07-14 Malnoske use of use of RN non-steroid non-steroid al al anti-inflam anti-inflam matories matories (NSAID) (NSAID) Pain frequent Pain Mgmt Active Sofia pain 1-04 (Deysi) 09:00: Елена [id number] Cardio edema Cardiovasc Active Sofia ular 1-04 (Deysi) 09:00: Елена [id number] Respiratory dyspnea Respirator Resolve 2019-07-19 Sofia present y d 1-04 09:00:00 (Deysi) 09:00: Елена [id number] Sensory impaired Sensory Resolve 2019-07-19 Sofia hearing d 1-04 09:00:00 (Deysi) 09:00: Елена [id number] Integument surgical Integument Active Sofia wound 1-04 (Deysi) present 09:00: Елена [id number] Integument skin Integument Active Sofia integrity 1-04 (Deysi) risk 09:00: Елена [id number] Elimination urinary Eliminatio Resolve 2019-07-19 Sofia incontinenc n d 1-04 09:00:00 (Deysi) e 09:00: Елена [id number] Neuro confusion Neuro/Emot Resolve 2019-2019-07-19 Sofia present ion d 1-04 09:00:00 (Deysi) 09:00: Christiansen [id number] Activity ADL Activity Resolve 2019-07-19 Sofia assistance d -04 09:00:00 (Deysi) required 09:00: Christiansen [id number] Activity self-care Activity Resolve 2019-07-19 Sofia deficit d -04 09:00:00 (Deysi) 09:00: Christiansen [id number] Safety fall risk Safety Active 2019- Sofia factor 1-04 (Deysi) present 09:00: Christiansen [id number] Safety risk for Safety Active 2019- Sofia hospitaliza 1-04 (Deysi) tion 09:00: Christiansen [id number] Medication oral med Meds Active 2019- Sofia assistance -04 (Deysi) required 09:00: Christiansen [id number] Musculoskel transfer Musculoske Active 2019- Sofia etal assistance letal -04 (Deysi) required 09:00: Christiansen [id number] Musculoskel requires Musculoske Active 2019-0 Sofia etal human letal -04 (Deysi) assist to 09:00: Christiansen leave home 00 [id number] ROM ROM PT: ROM Active Renzo deficit: LE 1- Kraak 10:45: [id number] Strength/To strength PT: Active Renzo ne/Motor deficit: LE Strength -06 Kraak Control 10:45: [id number] Balance/End balance/promotions coordinator PT/OT: Active Renzo urance rdination Balance/En -06 Kraak deficit durance 10:45: [id number] Balance/End endurance PT/OT: Active 2019- Renzo urance deficit Balance/En -06 Kraak durance 10:45: [id number] 00 OT: Self self-care OT: Active Renzo Care deficit Self-Care 07-18 Kraak 10:45: [id number] Gait/Locomo gait PT/OT: Active Renzo tion deficit Gait/Locom 06 Kraak problems otion 10:45: [id number] Respiratory Incentive Respirator Resolve 2019-07-19 Nicolasa Spirometer y d 07-19 09:00:00 Vallely /Acapella 09:00: Device 00 treatments in home Endo/Odin anti-coagul Endo/Odin Resolve 2019-07-19 Nicolasa ation d 07-19 09:00:00 Vallely therapy 09:00: 00 Safety can be left Safety Resolve 2019-07-19 Nicolasa alone for d 07-19 09:00:00 Vallely only short 09:00: periods 00 Allergies, [...] Unknown Unknown 40 mg 40 mg 07-19 MDJessie tablet tablet Vital Signs Vital Name Observation Time Observation Value Comments SYSTOLIC mm[Hg] 2019-07-19 18:09:45 110 mm[Hg] mm[Hg] Method: Sit SYSTOLIC mm[Hg] 2019-07-18 18:09:44 122 mm[Hg] mm[Hg] Method: Stand DIASTOLIC mm[Hg] 2019-07-19 18:09:45 62 mm[Hg] mm[Hg] Method: Sit DIASTOLIC mm[Hg] 2019-07-18 18:09:44 60 mm[Hg] mm[Hg] Method: Stand PULSE 2019-07-19 18:09:45 63 /min /min RESP RATE 2019-07-19 18:09:45 16 /min /min TEMP 2019-07-19 18:09:45 96.9 [degF] Procedures This patient has no known procedures. Results This patient has no known results.
--- OUTSIDE RECORDS SUMMARY | 2019-08-02 06:48 | XMS REPORT | Continuity of Care Document ---
:1955 External Reference #:[id number] Author Name Jessie Fagan M.D. 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 Onset: 11/29/2018 Social History Type Date Description Comments Sex Unknown ETOH Use Currently consumes alcohol 4 drinks/week Tobacco Use Start: Unknown Patient has never smoked Smoking Status Reviewed: 07/27/19 Patient has never smoked Exercise Type/Frequency Exercises regularly Allergies, Adverse Reactions, Alerts Active Allergies Reaction Severity Comments Date Clindamycin 04/13/2019 Nickel 04/13/2019 Inactive Allergies NKDA 11/29/2018 Medications Active Medications SIG Qnty Indications Ordering Provider Date Percocet 1 - 2 tabs by 60tabs Jessie Fagan, 07/15/2019 5-325mg mouth every 4 - 6 M.D. Tablets hours as needed for pain. Fish Oil 1 tab by mouth Unknown 1000mg every morning Capsules T-Relief Pain Relief as directed Unknown Ibuprofen 1 tab by mouth Unknown 400mg Tablets three times a day as needed Chondroitin Sulfate 1 tab by mouth Unknown once daily as needed Skulcap 1 cap by mouth Unknown once daily prn Passion 1 tab by mouth Unknown Flower-Valerian once daily prn Jujube 1 tab by mouth Unknown once daily prn Sedaplex Valerian 200mg Unknown Hops 150mg Multivital 1 tab by mouth Unknown once daily prn Glucosamine Sulfate 1 tab by mouth Unknown once daily as needed Citalopram Take 1 Tablet By Unknown Hydrobromide Mouth Every Day 40mg Tablets History Medications Eliquis take 1 tab twice 60tabs Jessie Fagan, 07/15/2019 - 2.5mg Tablets a day x 30 days M.D. 07/15/2019 Ciprofloxacin HCL 1 tab by mouth 10tabs Armando Rigo, 07/05/2019 - 500mg twice daily x 5 MD 07/26/2019 Tablets days Bactrim DS take 1 by mouth 6tabs Jessie Fagan, 07/01/2019 - 800-160mg Tablets twice a day for M.D. 07/26/2019 3 days Percocet 1-2 tabs by 60tabs Jessie Fagan, 02/11/2019 - 5-325mg Tablets mouth every 4-6 M.D. 03/31/2019 hours as needed pain Aspirin Adult take one tab 60tabs Jessie Fagan, 02/04/2019 - Unknown 325mg Tablets twice a day for M.D. 30 days Medications Administered in Office Medication SIG Qnty Indications Ordering Provider Date Depomedrol 80MG Mayra Phan M.D. 11/04/2012 Injection Immunizations Description No Information Available Vital Signs Date Vital Result Comment 07/27/2019 9:35am Height 66 inches 5'6" Weight 155.00 lb Heart Rate 62 /min BP Systolic Sitting 128 mmHg BP Diastolic Sitting 80 mmHg Respiratory Rate 16 /min Pain Level 2 O2 % BldC Oximetry 96 % BMI (Body Mass Index) 25.0 kg/m2 06/29/2019 8:40am Height 66 inches 5'6" Weight 154.00 lb Heart Rate 64 /min BP Systolic 110 mmHg BP Diastolic 70 mmHg Respiratory Rate 18 /min Pain Level 0 BMI (Body Mass Index) 24.9 kg/m2 Results Test Acquired Date Facility Test Result H/L Range Note Urinalysis Profile 06/29/2019 [facility] Urine Color Yellow [address] [place] [address] [phone] Urine Appearance Clear Urine Specific Ophiem 1.017 Normal 1.010-1.030 Urine pH 6.0 Normal 5-9 Urine Urobilinogen Negative Negative Urine Ketones Negative Negative Urine Protein Negative Negative Urine Leukocytes Negative Negative Urine Blood Negative Negative Urine Nitrite Negative Negative Urine Bilirubin Negative Negative Urine Glucose Negative Negative Inr/Protime 06/29/2019 [facility] Inr 0.97 Normal 0.82-1.[address] [place] [address] [phone] Laboratory test 06/29/2019 [facility] Partial 35.2 Normal 26.0 -38.[address] [address] Time PTT [phone] CBC Auto Diff 06/29/2019 [facility] White Blood 7.1 10^3/uL Normal 3.5-10.[address] [place] [address] [phone] Red Blood Count 4.55 10^6/uL Normal 3.70-4.87 Hemoglobin 13.6 g/dL Normal 12.0-16.0 Hematocrit 41 % Normal 35-47 Mean Corpuscular Volume 90 fL Normal 80-97 Mean Corpuscular Hemoglobin 30 pg Normal 27-31 Mean Corpuscular HGB Conc 33 g/dL Normal 31-36 Red Cell Distribution Width 15 % Normal 10-15 Platelet Count 317 10^3/uL Normal 150-450 Mean Platelet Volume 7.8 fL Normal 7.4-10.4 Abs Neutrophils 4.5 10^3/uL Normal 1.5-7.7 Abs Lymphocytes 2.0 10^3/uL Normal 1.0-4.8 Abs Monocytes 0.4 10^3/uL Normal 0-0.8 Abs Eosinophils 0.1 10^3/uL Normal 0-0.6 Abs Basophils 0.1 10^3/uL Normal 0-0.2 Abs Nucleated RBC 0.0 10^3/uL Granulocyte % 64.0 % Lymphocyte % 27.9 % Monocyte % 5.4 % Eosinophil % 1.7 % Basophil % 1.0 % Nucleated Red Blood Cells % 0.0 Basic Metabolic 06/29/2019 [facility] Sodium 139 mmol/L Normal 135-[address] [place] [address] [phone] Potassium 4.2 mmol/L Normal 3.5-5.0 Chloride 101 mmol/L Normal 101-111 Co2 Carbon Dioxide 30 mmol/L Normal 22-32 Anion Gap 8 mmol/L Normal 2-11 Glucose 94 mg/dL Normal 70-100 Blood Urea Nitrogen 14 mg/dL Normal 6-24 Creatinine 0.52 mg/dL Normal 0.51-0.95 BUN/Creatinine Ratio 26.9 High 8-20 Calcium 9.4 mg/dL Normal 8.6-10.3 Egfr Non- 118.3 >60 Egfr 143.2 >60 2 Type & Screen 06/29/2019 [facility] Patient Blood Type A Positive [address] [place] [address] [phone] Antibody Screen NEGATIVE Urine Culture And 06/29/2019 [facility] Urine Culture SEE RESULT [address] [place] [address] [phone] 1 Standard intensity warfarin therapeutic range: 2.0-3.0 High intensity warfarin therapeutic range: 2.5-3.5 2 Because ethnic data is not always readily available, this report includes an eGFR for both -Americans and non- Americans. The National Kidney Disease Education Program (NKDEP) does not endorse the use of the MDRD equation for patients that are not between the ages of 18 and 70, are , have extremes of body size, muscle mass, or nutritional status, or are non- or non-. According to the National Kidney Foundation, irrespective of diagnosis, the stage of the disease is based on the level of kidney function: Stage Description GFR(mL/min/1.73 m(2)) 1 Kidney damage with normal or decreased GFR 90 2 Kidney damage with mild decrease in GFR 60-89 3 Moderate decrease in GFR 30-59 4 Severe decrease in GFR 15-29 5 Kidney failure <15 (or dialysis) 3 SEE RESULT BELOW Name: LUIS NELSON : [address]: Jessie Fagan MD Acct: [id number] Unit: [id number] AGE: 63 Location: [facility] Re06/29/19 SEX: F Status: REG REF SPEC: [id number] CORNELIUS: 06/29/[address]: Jessie Fagan MD REQ: [id number] RECD: 06/29/19 STATUS: COMP _ SOURCE: URINE SPDESC: ORDERED: Urine Culture QUERIES: Urine Source: Clean Catch Procedure Result Reported Site Urine Culture Final 07/01/19- 1100 ML Organism 1 KLEBSIELLA OXYTOCA [place] Count 50-75,000 (Many) CFU/ML 1. KLEBSIELLA OXYTOCA [facility].I.[facility]. RX --------- ------ Ampicillin R Cefazolin <=4 S Cefepime <=1 S Ceftriaxone <=1 S Ciprofloxacin <=0.25 S Gentamicin <=1 S Levofloxacin <=0.12 S Meropenem <=0.25 S Nitrofurantoin 64 I Tetracycline <=1 S Pipercillin/Tazobactam <=4 S Trimethoprim/Sulfamethoxazole <=20 S Amoxicillin/Clavulanic Acid <=2 S Aztreonam <=1 S Contact the Microbiology Department for any additional antibiotic reporting. * - Main Lab . END OF REPORT DEPARTMENT OF PATHOLOGY, [address] [place] [address] Renzo Sanders M.D. Director [facility] # [id number] Procedures Date Code Description Status 07/14/2019 74602 TKR Total Knee Replacement Completed 07/14/2019 70516 TKR Total Knee Replacement Completed 02/03/2019 46140 TKR Total Knee Replacement Completed 02/03/2019 00720 TKR Total Knee Replacement Completed Medical Devices Description No Information Available Encounters Type Date Location Provider Dx Diagnosis Office Visit 04/13/2019 [facility] Jessie Fagan M25.562 Pain in left knee 8:45a at [place] Luis M M25.462 Effusion, left knee M17.12 Unilateral primary osteoarthritis, left knee Assessments Date Code Description Provider 07/27/2019 M17.12 Unilateral primary osteoarthritis, left knee Jessie Fagan M.D. 07/27/2019 M25.562 Pain in left knee Jessie Fagan M.D. 07/27/2019 M25.462 Effusion, left knee Jessie Fagan M.D. 07/27/2019 Z47.1 Aftercare following joint replacement surgery Jessie Fagan M.D. 07/14/2019 M17.12 Unilateral primary osteoarthritis, left knee Segundo Crespo PA-C 07/14/2019 M17.12 Unilateral primary osteoarthritis, left knee Jessie Fagan M.D. 06/29/2019 M25.562 Pain in left knee Jessie [...] primary osteoarthritis, right knee Jessie Fagan M.D. Plan of Treatment Future Appointment(s):08/19/2019 1:45 pm - Jessie Fagan M.D. at [facility] at [id number]/27/2019 - Jessie Fagan M.D.M17.12 Unilateral primary osteoarthritis, left kneeNew Therapy:Physical TherapyFollow up:Follow up: 4 eyxthZ78.562 Pain in left kneeM25.462 Effusion, left kneeZ47.1 Aftercare following joint replacement surgery Functional Status Description No Information Available Mental Status Description No Information Available Referrals Description No Information Available
--- OUTSIDE RECORDS SUMMARY | 2019-08-02 06:48 | XMS REPORT ---
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 Diagnosis Active Renzo (current) (current) 07-14 Kraak use of use of [id number] non-steroid non-steroid al al anti-inflam anti-inflam matories matories (NSAID) (NSAID) Pain frequent Pain Mgmt Resolve 2019-07-22 Sofia pain d 1-04 15:15:00 (Deysi) 09:00: Christiansen [id number] Cardio edema Cardiovasc Resolve 2019-07-26 Sofia ular d 1-04 10:05:00 (Deysi) 09:00: Christiansen [id number] Respiratory dyspnea Respirator Resolve 2019-07-19 Sofia present y d 1-04 09:00:00 (Deysi) 09:00: Christiansen [id number] Sensory impaired Sensory Resolve 2019-07-19 Sofia hearing d 1-04 09:00:00 (Deysi) 09:00: Christiansen [id number] Integument surgical Integument Resolve 2019-07-26 Sofia wound d 1-04 10:05:00 (Deysi) present 09:00: Christiansen [id number] Integument skin Integument Resolve 2019-07-26 Sofia integrity d 1-04 10:05:00 (Deysi) risk 09:00: Christiansen 00 [id number] Elimination urinary Eliminatio Resolve 2019-07-19 Sofia incontinenc n d -04 09:00:00 (Deysi) e 09:00: Christiansen [id number] Neuro confusion Neuro/Emot Resolve 2019-07-19 Sofia present ion d -04 09:00:00 (Deysi) 09:00: Christiansen [id number] Activity ADL Activity Resolve 2019-07-19 Sofia assistance d -04 09:00:00 (Deyis) required 09:00: Christiansen [id number] Activity self-care Activity Resolve 2019-07-19 Sofia deficit d -04 09:00:00 (Deysi) 09:00: Christiansen 00 [id number] Safety fall risk Safety Resolve 2019-07-22 Sofia factor d -04 15:15:00 (Deysi) present 09:00: Christiansen [id number] Safety risk for Safety Resolve 2019-07-22 Sofia hospitaliza d -04 15:15:00 (Deysi) tion 09:00: Christiansen [id number] Medication oral med Meds Resolve 2019-07-22 Sofia assistance d -04 15:15:00 (Deysi) required 09:00: Christiansen [id number] Musculoskel transfer Musculoske Resolve 2019-07-22 Sofia etal assistance letal d -04 15:15:00 (Deysi) required 09:00: Christiansen [id number] Musculoskel requires Musculoske Resolve 2019-07-22 Sofia etal human letal d -04 15:15:00 (Deysi) assist to 09:00: Christiansen leave home 00 [id number] ROM ROM PT: ROM Active Renzo deficit: LE - Kraak 10:45: [id number] 00 Strength/To strength PT: Active Renzo ne/Motor deficit: LE Strength 07-18 Kraak Control 10:45: [id number] 00 Balance/End balance/pilates coordinator PT/OT: Active Renzo urance rdination Balance/En 07-18 Kraak deficit durance 10:45: [id number] 00 Balance/End endurance PT/OT: Active Renzo urance deficit Balance/En 07-18 Kraak durance 10:45: [id number] 00 OT: Self self-care OT: Active Renzo Care deficit Self-Care 07-18 Kraak 10:45: [id number] 00 Gait/Locomo gait PT/OT: Active Renzo tion deficit Gait/Locom 07-18 Kraak problems otion 10:45: [id number] Respiratory Incentive Respirator Resolve 2019-07-19 Nicolasa [...] Observation Time Observation Value Comments SYSTOLIC mm[Hg] 2019-07-29 18:09:55 96 mm[Hg] mm[Hg] Method: Sit SYSTOLIC mm[Hg] 2019-07-18 18:09:44 122 mm[Hg] mm[Hg] Method: Stand DIASTOLIC mm[Hg] 2019-07-29 18:09:55 60 mm[Hg] mm[Hg] Method: Sit DIASTOLIC mm[Hg] 2019-07-18 18:09:44 60 mm[Hg] mm[Hg] Method: Stand PULSE 2019-07-29 18:09:55 76 /min /min RESP RATE 2019-07-26 18:09:52 16 /min /min TEMP 2019-07-26 18:09:52 97.4 [degF] Procedures This patient has no known procedures. Results This patient has no known results.
--- OUTSIDE RECORDS SUMMARY | 2019-08-02 06:48 | XMS REPORT ---
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 Active Sarai (current) (current) 07-14 [place] use of use of RN non-steroid non-steroid al al anti-inflam anti-inflam matories matories (NSAID) (NSAID) Pain frequent Pain Mgmt Resolve 2019-07-22 Sofia pain d 1-04 15:15:00 (Deysi) 09:00: Елена [id number] Cardio edema Cardiovasc Active Sofia ular 1- (Deysi) 09:00: Christiansen [id number] Respiratory dyspnea Respirator Resolve 2019-07-19 Sofia present y d 1-04 09:00:00 (Deysi) 09:00: Christiansen [id number] Sensory impaired Sensory Resolve 2019-07-19 Sofia hearing d 1-04 09:00:00 (Deysi) 09:00: Елена [id number] Integument surgical Integument Active Sofia wound 1-04 (Deysi) present 09:00: Christiansen [id number] Integument skin Integument Active Sofia integrity 1-04 (Deysi) risk 09:00: Елена [id number] Elimination urinary Eliminatio Resolve 2019-07-19 Sofia incontinenc n d 1-04 09:00:00 (Deysi) e 09:00: Christiansen [id number] Neuro confusion Neuro/Emot Resolve 2019-07-19 Sofia present ion d 1-04 09:00:00 (Deysi) 09:00: Christiansen [id number] Activity ADL Activity Resolve 2019-07-19 Sofia assistance d 1-04 09:00:00 (Deysi) required 09:00: Christiansen [id number] Activity self-care Activity Resolve 2019-07-19 Sofia deficit d 1-04 09:00:00 (Deysi) 09:00: Christiansen [id number] Safety fall risk Safety Resolve 2019-07-22 Sofia factor d 1-04 15:15:00 (Deysi) present 09:00: Christiansen [id number] Safety risk for Safety Resolve 2019-07-22 Sofia hospitaliza d 1-04 15:15:00 (Deysi) tion 09:00: Christiansen [id number] Medication oral med Meds Resolve 2019-07-22 Sofia assistance d 1-04 15:15:00 (Deysi) required 09:00: Christiansen [id number] Musculoskel transfer Musculoske Resolve 2019-07-22 Sofia etal assistance letal d -04 15:15:00 (Deysi) required 09:00: Christiansen [id number] Musculoskel requires Musculoske Resolve 2019-07-22 Sofia etal human letal d -04 15:15:00 (Deysi) assist to 09:00: Christiansen leave home 00 [id number] ROM ROM PT: ROM Active Renzo deficit: LE 1-06 Kraak 10:45: [id number] 00 Strength/To strength PT: Active Renzo ne/Motor deficit: LE Strength 106 Kraak Control 10:45: [id number] Balance/End balance/ppap coordinator PT/OT: Active Renzo urance rdination Balance/En 1- Kraak deficit durance 10:45: [id number] Balance/End endurance PT/OT: Active Renzo urance deficit Balance/En - Kraak durance 10:45: [id number] 00 OT: Self self-care OT: Active Renzo Care deficit Self-Care 07-18 Kraak 10:45: [id number] 00 Gait/Locomo gait PT/OT: Active Renzo tion deficit Gait/Locom 07-18 Kraak problems otion 10:45: [id number] 00 Respiratory Incentive Respirator Resolve 2019-07-19 Nicolasa [...]
--- OUTSIDE RECORDS SUMMARY | 2019-08-02 06:48 | XMS REPORT ---
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 Active Sarai (current) (current) 07-14 [place]ke use of use of RN non-steroid non-steroid al al anti-inflam anti-inflam matories matories (NSAID) (NSAID) Pain frequent Pain Mgmt Resolve 2019-07-22 Sofia pain d 1-04 15:15:00 (Deysi) 09:00: Елена [id number] Cardio edema Cardiovasc Active Sofia ular 1- (Deysi) 09:00: Christiansen [id number] Respiratory dyspnea Respirator Resolve 2019-07-19 Sofia present y d 1-04 09:00:00 (Deysi) 09:00: Christiansen [id number] Sensory impaired Sensory Resolve 2019-07-19 Sofia hearing d 1-04 09:00:00 (Deysi) 09:00: Елена [id number] Integument surgical Integument Active Sofia wound 1-04 (Deysi) present 09:00: Christiansen [id number] Integument skin Integument Active Sofia integrity 1-04 (Deysi) risk 09:00: Елена [id number] Elimination urinary Eliminatio Resolve 2019-07-19 Sofia incontinenc n d 1-04 09:00:00 (Deysi) e 09:00: Christiansen 00 [id number] Neuro confusion Neuro/Emot Resolve 2019-2019-07-19 Sofia present ion d 1-04 09:00:00 (Deysi) 09:00: Christiansen [id number] Activity ADL Activity Resolve 2019-07-19 Sofia assistance d -04 09:00:00 (Deysi) required 09:00: Christiansen [id number] Activity self-care Activity Resolve 2019-07-19 Sofia deficit d -04 09:00:00 (Deysi) 09:00: Christiansen [id number] Safety fall risk Safety Active 2019- Sofia factor 1-04 (Deysi) present 09:00: Christiansen [id number] Safety risk for Safety Active 2019- Sofia hospitaliza 04 (Deysi) tion 09:00: Christiansen [id number] Medication oral med Meds Active 2019- Sofia assistance -04 (Deysi) required 09:00: Christiansen [id number] Musculoskel transfer Musculoske Active 2019- Sofia etal assistance letal 04 (Deysi) required 09:00: Christiansen [id number] Musculoskel requires Musculoske Active 2019-0 Sofia etal human letal 04 (Deysi) assist to 09:00: Christianesn leave home 00 [id number] ROM ROM PT: ROM Active Renzo deficit: LE 07-18 Kraak 10:45: [id number] 00 Strength/To strength PT: Active Renzo ne/Motor deficit: LE Strength 07-18 Kraak Control 10:45: [id number] 00 Balance/End balance/rehabilitation program coordinator PT/OT: Active Renzo urance rdination Balance/En 07-18 Kraak deficit durance 10:45: [id number] 00 Balance/End endurance PT/OT: Active 2019- Renzo urance deficit Balance/En 07-18 Kraak durance 10:45: [id number] 00 OT: Self self-care OT: Active Renzo Care deficit Self-Care 07-18 Kraak 10:45: [id number] 00 Gait/Locomo gait PT/OT: Active Renzo tion deficit Gait/Locom 07-18 Kraak problems otion 10:45: [id number] Respiratory Incentive Respirator Resolve 2019-07-19 Nicolasa Spirometer y d 07-19 09:00:00 Vallely /Acapella 09:00: Device 00 treatments in home Endo/Odin anti-coagul Endo/Odin Resolve 2019-07-19 Nicolasa ation d 07-19 09:00:00 Vallely therapy 09:00: 00 Safety can be left Safety Active Nicolasa alone for 07-19 Vallely only short 09:00: periods 00 Allergies, [...]
--- OUTSIDE RECORDS SUMMARY | 2019-08-02 06:48 | XMS REPORT ---
:1955 Author Organization [facility] Care Team Providers Name Role Phone Unavailable [...]
--- OUTSIDE RECORDS SUMMARY | 2019-08-02 06:48 | XMS REPORT ---
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 Renzo (current) (current) 07-14 Kraak use of use of [id number] non-steroid non-steroid al al anti-inflam anti-inflam matories matories (NSAID) (NSAID) Pain frequent Pain Mgmt Resolve 2019-07-22 Sofia pain d 1-04 15:15:00 (Deysi) 09:00: Christiansen [id number] Cardio edema Cardiovasc Resolve 2019-07-26 Sofia ular d 1-04 10:05:00 (Deysi) 09:00: Christiansen [id number] Respiratory dyspnea Respirator Resolve 2019-07-19 Sofia present y d 1-04 09:00:00 (Deysi) 09:00: Christiansen [id number] Sensory impaired Sensory Resolve 2019-07-19 Sofia hearing d 1-04 09:00:00 (Deysi) 09:00: Christiansen [id number] Integument surgical Integument Resolve 2019-07-26 Sofia wound d 1-04 10:05:00 (Deysi) present 09:00: Christiansen [id number] Integument skin Integument Resolve 2019-07-26 Sofia integrity d 1-04 10:05:00 (Deysi) risk 09:00: Christiansen 00 [id number] Elimination urinary Eliminatio Resolve 2019-07-19 Sofia incontinenc n d -04 09:00:00 (Deysi) e 09:00: Christiansen [id number] Neuro confusion Neuro/Emot Resolve 2019-07-19 Sofia present ion d -04 09:00:00 (Deysi) 09:00: Christiansen [id number] Activity ADL Activity Resolve 2019-07-19 Sofia assistance d -04 09:00:00 (Deysi) required 09:00: Christiansen [id number] Activity self-care Activity Resolve 2019-07-19 Sofia deficit d -04 09:00:00 (Deysi) 09:00: Christiansen 00 [id number] Safety fall risk Safety Resolve 2019-07-22 Sofia factor d -04 15:15:00 (Deysi) present 09:00: Christiansen [id number] Safety risk for Safety Resolve 2019-07-22 Sofia hospitaliza d -04 15:15:00 (Desyi) tion 09:00: Christiansen [id number] Medication oral med Meds Resolve 2019-07-22 Sofia assistance d -04 15:15:00 (Deysi) required 09:00: Christiansen [id number] Musculoskel transfer Musculoske Resolve 2019-07-22 Sofia etal assistance letal d -04 15:15:00 (Deysi) required 09:00: Christiansen [id number] Musculoskel requires Musculoske Resolve 2019-07-22 Sofia etal human letal d -04 15:15:00 (Deysi) assist to 09:00: Christiansen leave home 00 [id number] ROM ROM PT: ROM Active Renzo deficit: LE - Kraak 10:45: [id number] 00 Strength/To strength PT: Active Renzo ne/Motor deficit: LE Strength 07-18 Kraak Control 10:45: [id number] Balance/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
--- OUTSIDE RECORDS SUMMARY | 2019-08-02 06:48 | XMS REPORT ---
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 Diagnosis Active Sarai (current) (current) 07-14 Malnoske use of use of RN non-steroid non-steroid al al anti-inflam anti-inflam matories matories (NSAID) (NSAID) Pain frequent Pain Mgmt Resolve 2019-07-22 Sofia pain d 1-04 15:15:00 (Deysi) 09:00: Елена [id number] Cardio edema Cardiovasc Active Sofia ular 1- (Deysi) 09:00: Christiansen [id number] Respiratory dyspnea Respirator Resolve 2019-07-19 Sofia present y d 1-04 09:00:00 (Deysi) 09:00: Christiansen [id number] Sensory impaired Sensory Resolve 2019-07-19 Sofia hearing d 1-04 09:00:00 (Deysi) 09:00: Елена [id number] Integument surgical Integument Active Sofia wound 1-04 (Deysi) present 09:00: Christiansen [id number] Integument skin Integument Active Sofia integrity 1-04 (Deysi) risk 09:00: Елена [id number] Elimination urinary Eliminatio Resolve 2019-07-19 Sofia incontinenc n d 1-04 09:00:00 (Deysi) e 09:00: Christiansen [id number] Neuro confusion Neuro/Emot Resolve 2019-07-19 Sofia present ion d 1-04 09:00:00 (Deysi) 09:00: Christiansen [id number] Activity ADL Activity Resolve 2019-07-19 Sofia assistance d 1-04 09:00:00 (Deysi) required 09:00: Christiansen [id number] Activity self-care Activity Resolve 2019-07-19 Sofia deficit d 1-04 09:00:00 (Deysi) 09:00: Christiansen [id number] Safety fall risk Safety Resolve 2019-07-22 Sofia factor d 1-04 15:15:00 (Deysi) present 09:00: Christiansen [id number] Safety risk for Safety Resolve 2019-07-22 Sofia hospitaliza d 1-04 15:15:00 (Deysi) tion 09:00: Christiansen [id number] Medication oral med Meds Resolve 2019-07-22 Sofia assistance d 1-04 15:15:00 (Deysi) required 09:00: Christiansen [id number] Musculoskel transfer Musculoske Resolve 2019-07-22 Sofia etal assistance letal d -04 15:15:00 (Deysi) required 09:00: Christiansen [id number] Musculoskel requires Musculoske Resolve 2019-07-22 Sofia etal human letal d -04 15:15:00 (Deysi) assist to 09:00: Christiansen leave home 00 [id number] ROM ROM PT: ROM Active Renzo deficit: LE 1-06 Kraak 10:45: [id number] 00 Strength/To strength PT: Active Renzo ne/Motor deficit: LE Strength 106 Kraak Control 10:45: [id number] 00 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
--- OUTSIDE RECORDS SUMMARY | 2019-08-02 06:48 | XMS REPORT ---
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 Sarai (current) (current) 07-14 [place]ke use of use of RN non-steroid non-steroid al al anti-inflam anti-inflam matories matories (NSAID) (NSAID) Pain frequent Pain Mgmt Active Sofia pain 1-04 (Deysi) 09:00: Елена [id number] Cardio edema Cardiovasc Active Sofia ular 1-04 (Deysi) 09:00: Елена [id number] Respiratory dyspnea Respirator Resolve 2019-07-19 Sofia present y d 1-04 09:00:00 (Deysi) 09:00: Елена [id number] Sensory impaired Sensory Resolve 2019-07-19 Sofia hearing d 1-04 09:00:00 (Deysi) 09:00: Елена [id number] Integument surgical Integument Active Sofia wound 1-04 (Deysi) present 09:00: Елена [id number] Integument skin Integument Active Sofia integrity 1-04 (Deysi) risk 09:00: Елена [id number] Elimination urinary Eliminatio Resolve 2019-07-19 Sofia incontinenc n d 1-04 09:00:00 (Deysi) e 09:00: Елена [id number] Neuro confusion Neuro/Emot Resolve 2019-2019-07-19 Sofia present ion d 1-04 09:00:00 (Deysi) 09:00: Christiansen [id number] Activity ADL Activity Resolve 2019-07-19 Sofia assistance d -04 09:00:00 (Deysi) required 09:00: Christiansen [id number] Activity self-care Activity Resolve 2019-07-19 Sofia deficit d -04 09:00:00 (Deysi) 09:00: Chritsiansen [id number] Safety fall risk Safety Active 2019- Sofia factor 1-04 (Deysi) present 09:00: Christiansen [id number] Safety risk for Safety Active 2019- Sofia hospitaliza 1-04 (Deysi) tion 09:00: Christiansen [id number] Medication oral med Meds Active 2019- Sofia assistance -04 (Deysi) required 09:00: Christiansen [id number] Musculoskel transfer Musculoske Active 2019- Sofia etal assistance letal -04 (Deysi) required 09:00: Christiansen [id number] Musculoskel requires Musculoske Active 2019-0 Sofia etal human letal -04 (Deysi) assist to 09:00: Christiansen leave home 00 [id number] ROM ROM PT: ROM Active Renzo deficit: LE 1- Kraak 10:45: [id number] 00 Strength/To strength PT: Active Renzo ne/Motor deficit: LE Strength -06 Kraak Control 10:45: [id number] 00 Balance/End balance/coordinator of placement PT/OT: Active Renzo urance rdination Balance/En -06 Kraak deficit durance 10:45: [id number] 00 Balance/End endurance PT/OT: Active 2019- Renzo urance deficit Balance/En -06 Kraak durance 10:45: [id number] 00 OT: Self self-care OT: Active Renzo Care deficit Self-Care 07-18 Kraak 10:45: [id number] 00 Gait/Locomo gait PT/OT: Active Renzo tion deficit Gait/Locom 06 Kraak problems otion 10:45: [id number] 00 Respiratory Incentive Respirator Resolve 2019-07-19 Nicolasa [...]
--- OUTSIDE RECORDS SUMMARY | 2019-08-02 06:48 | XMS REPORT ---
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 2019-0 Sarai (current) (current) 07-14 [place]ke use of use of RN non-steroid non-steroid al al anti-inflam anti-inflam matories matories (NSAID) (NSAID) Pain frequent Pain Mgmt Active 2019-0 Sofia pain 1-04 (Deysi) 09:00: Елена [id number] Cardio edema Cardiovasc Active 2020-0 Sofia ular 1-04 (Deysi) 09:00: Елена [id number] Respiratory dyspnea Respirator Active 2020-0 Sofia present y 1-04 (Deysi) 09:00: Елена [id number] Sensory impaired Sensory Active 2019-0 Sofia hearing 1-04 (Deysi) 09:00: Елена [id number] Integument surgical Integument Active 2020-0 Sofia wound 1-04 (Deysi) present 09:00: Елена [id number] Integument skin Integument Active 2020-0 Sofia integrity 1-04 (Deysi) risk 09:00: Елена [id number] Elimination urinary Eliminatio Active 2020-0 Sofia incontinenc n 1-04 (Deysi) e 09:00: Елена [id number] Neuro confusion Neuro/Emot Active 2020-0 Sofia present ion 1-04 (Deysi) 09:00: Елена [id number] Activity ADL Activity Active 2020-0 Sofia assistance 1-04 (Deysi) required 09:00: Christiansen [id number] Activity self-care Activity Active 2020-0 Sofia deficit 1-04 (Deysi) 09:00: Christiansen [id number] Safety fall risk Safety Active 2020-0 Sofia factor 1-04 (Deysi) present 09:00: Christiansen [id number] Safety risk for Safety Active 2019-0 Sofia hospitaliza 1-04 (Deysi) tion 09:00: Christiansen [id number] Medication oral med Meds Active 2020-0 Sofia assistance 1-04 (Deysi) required 09:00: Christiansen [id number] Musculoskel transfer Musculoske Active 2019-0 Sofia etal assistance letal 04 (Deysi) required 09:00: Christiansen [id number] Musculoskel requires Musculoske Active 2019-0 Sofia etal human letal 07-16 (Deysi) assist to 09:00: Christiansen leave home [id number] Allergies, Adverse Reactions, Alerts Allergy Name Allergy Status Severity Reaction(s) Onset Inactive Treating Comments Type Date Date Clinician nickel Base Active Unknown Reaction Interface Ingredient Unknown 7 clindamycin Base Active Unknown Reaction Lilia Beam Ingredient Unknown 1 Medications Ordered Filled Start Stop Current Ordering Indication Dosage Frequency Signature Comments Components Medication Medication Date Date Medication? Clinician (SIG) Name Name No Known No Known No None None None Medications Medications For This For This Patient Patient Vital Signs Vital Name Observation Time Observation Value Comments SYSTOLIC mm[Hg] 2019-07-18 18:09:44 122 mm[Hg] mm[Hg] Method: Sit SYSTOLIC mm[Hg] 2019-07-18 18:09:44 122 mm[Hg] mm[Hg] Method: Stand DIASTOLIC mm[Hg] 2019-07-18 18:09:44 60 mm[Hg] mm[Hg] Method: Sit DIASTOLIC mm[Hg] 2019-07-18 18:09:44 60 mm[Hg] mm[Hg] Method: Stand PULSE 2019-07-18 18:09:44 84 /min /min RESP RATE 2019-07-18 18:09:44 18 /min /min TEMP 2019-07-18 18:09:44 98.4 [degF] Procedures This patient has no known procedures. Results This patient has no known results.
--- OUTSIDE RECORDS SUMMARY | 2019-08-02 06:48 | XMS REPORT ---
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 Sarai (current) (current) 07-14 [place] use of use of RN non-steroid non-steroid al al anti-inflam anti-inflam matories matories (NSAID) (NSAID) Pain frequent Pain Mgmt Resolve 2019-07-22 Sofia pain d 1-04 15:15:00 (Deysi) 09:00: Елнеа [id number] Cardio edema Cardiovasc Active Sofia ular 1- (Deysi) 09:00: Christiansen [id number] Respiratory dyspnea Respirator Resolve 2019-07-19 Sofia present y d 1-04 09:00:00 (Deysi) 09:00: Christiansen [id number] Sensory impaired Sensory Resolve 2019-07-19 Sofia hearing d 1-04 09:00:00 (Deysi) 09:00: Елена [id number] Integument surgical Integument Active Sofia wound 1-04 (Deysi) present 09:00: Christiansen [id number] Integument skin Integument Active Sofia integrity 1-04 (Deysi) risk 09:00: Елена [id number] Elimination urinary Eliminatio Resolve 2019-07-19 Sofia incontinenc n d 1-04 09:00:00 (Deysi) e 09:00: Christiansen 00 [id number] Neuro confusion Neuro/Emot Resolve 2019-2019-07-19 Sofia present ion d 1-04 09:00:00 (Deysi) 09:00: Christiansen [id number] Activity ADL Activity Resolve 2019-07-19 Sofia assistance d -04 09:00:00 (Deysi) required 09:00: Christiansen [id number] Activity self-care Activity Resolve 2019-07-19 Sofia deficit d -04 09:00:00 (Deysi) 09:00: Christiansen [id number] Safety fall risk Safety Active 2019- Sofia factor 1-04 (Deysi) present 09:00: Christiansen [id number] Safety risk for Safety Active 2019- Sofia hospitaliza 04 (Deysi) tion 09:00: Christiansen [id number] Medication oral med Meds Active 2019- Sofia assistance -04 (Deysi) required 09:00: Christiansen [id number] Musculoskel transfer Musculoske Active 2019- Sofia etal assistance letal 04 (Deysi) required 09:00: Christiansen [id number] Musculoskel requires Musculoske Active 2019-0 Sofia etal human letal 04 (Deysi) assist to 09:00: Christiansen leave home 00 [id number] ROM ROM PT: ROM Active Renzo deficit: LE 07-18 Kraak 10:45: [id number] Strength/To strength PT: Active Renzo ne/Motor deficit: LE Strength 07-18 Kraak Control 10:45: [id number] 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/OT: Active Renzo urance rdination Balance/En 07-18 Kraak deficit durance 10:45: [id number] Balance/End endurance PT/OT: Active 2019- Renzo urance deficit Balance/En 07-18 Kraak durance 10:45: [id number] 00 OT: Self self-care OT: Active Renzo Care deficit Self-Care 07-18 Kraak 10:45: [id number] Gait/Locomo gait PT/OT: Active Renzo tion deficit Gait/Locom 07-18 Kraak problems otion 10:45: [id number] Respiratory Incentive Respirator Resolve 2019-07-19 Nicolasa Spirometer y d 07-19 09:00:00 Vallely /Acapella 09:00: Device 00 treatments in home Endo/Odin anti-coagul Endo/Odin Resolve 2019-07-19 Nicolasa ation d 07-19 09:00:00 Vallely therapy 09:00: 00 Safety can be left Safety Active Nicloasa alone for 07-19 Vallely only short 09:00: [...]
--- OUTSIDE RECORDS SUMMARY | 2019-08-02 06:48 | XMS REPORT | Continuity of Care Document ---
:1955 External Reference #:[id number] Author Name Jessie Fagan M.D. (transmitted by agent of provider Mayra Felipe) Address [address] [place] [address] Care Team Providers Name Role Phone Pawel Singh MD - Internal Care Team Information [facility] Medicine Problems Active Problems Provider Date Arthroplasty of knee Jung Livingston MD Onset: 04/01/2019 Localized, primary osteoarthritis Jessie Fagan M.D. Onset: 11/29/2018 Social History Type Date Description Comments Sex Unknown ETOH Use Currently consumes alcohol 4 drinks/week Tobacco Use Start: Unknown Patient has never smoked Smoking Status Reviewed: 08/01/19 Patient has never smoked Exercise Type/Frequency Exercises [...] Available Vital Signs Date Vital Result Comment 08/01/2019 10:44am Height 66 inches 5'6" Weight 155.00 lb Heart Rate 72 /min BP Systolic 116 mmHg BP Diastolic 60 mmHg Respiratory Rate 18 /min Pain Level 2 BMI (Body Mass Index) 25.0 kg/m2 07/27/2019 9:35am Height 66 inches 5'6" Weight 155.00 lb Heart Rate 62 /min BP Systolic Sitting 128 mmHg BP Diastolic Sitting 80 mmHg Respiratory Rate 16 /min Pain Level 2 O2 % BldC Oximetry 96 % BMI (Body Mass Index) 25.0 kg/m2 Results Test Acquired Date Facility Test Result H/L Range Note Urinalysis Profile 06/29/2019 [facility] Urine Color Yellow [address] [place] [address] [phone] Urine Appearance Clear Urine Specific [place] 1.017 Normal 1.010-1.030 Urine pH 6.0 Normal 5-9 Urine Urobilinogen Negative Negative Urine Ketones Negative Negative Urine Protein Negative Negative Urine Leukocytes Negative Negative Urine Blood Negative Negative Urine Nitrite Negative Negative Urine Bilirubin Negative Negative Urine Glucose Negative Negative Inr/Protime 06/29/2019 [facility] Inr 0.97 Normal 0.82-1.[address] [place] [address] [phone] Laboratory test 06/29/2019 [facility] Partial 35.2 Normal 26.0 -38.[address] [place] [address] Time PTT [phone] CBC Auto Diff 06/29/2019 [facility] White Blood 7.1 10^3/uL Normal 3.5-10.[address] [place] [address] [phone] Red Blood Count 4.55 10^6/uL Normal 3.70-4.87 [...] Blood Cells % 0.0 Basic Metabolic 06/29/2019 [facility] Sodium 139 mmol/L Normal 135-[address] [place] [address] [phone] Potassium 4.2 mmol/L Normal 3.5-5.0 Chloride 101 mmol/L Normal 101-111 Co2 Carbon Dioxide 30 mmol/L Normal 22-32 Anion Gap 8 mmol/L Normal 2-11 Glucose 94 mg/dL Normal 70-100 Blood Urea Nitrogen 14 mg/dL Normal 6-24 Creatinine 0.52 mg/dL Normal 0.51-0.95 BUN/Creatinine Ratio 26.9 High 8-20 Calcium 9.4 mg/dL Normal 8.6-10.3 Egfr Non- 118.3 >60 Egfr 143.2 >60 2 Type & Screen 06/29/2019 [facility] Patient Blood Type A Positive [address] [place] [address] [phone] Antibody Screen NEGATIVE Urine Culture And 06/29/2019 [facility] Urine Culture SEE RESULT [address] [place] [address] [phone] 1 Standard intensity warfarin therapeutic range: 2.0-3.0 [...] [address]: Jessie Fagan MD Acct: [id number] Unit: [id number] AGE: 63 Location: [facility] Re06/29/19 SEX: F Status: REG REF SPEC: [id number] CORNELIUS: 06/29/[address]: Jessie Fagan MD REQ: [id number] RECD: 06/29/19 STATUS: COMP _ SOURCE: URINE SPDESC: ORDERED: Urine Culture QUERIES: Urine Source: Clean Catch Procedure Result Reported Site Urine Culture Final 07/01/19- 1100 ML Organism 1 KLEBSIELLA OXYTOCA [place] Count 50-75,000 (Many) CFU/ML 1. KLEBSIELLA OXYTOCA [...] . END OF REPORT DEPARTMENT OF PATHOLOGY, [address] [place] [address] Renzo Sanders M.D. Director [facility] # [id number] Procedures Date Code Description Status 07/14/2019 48626 TKR Total Knee Replacement Completed 07/14/2019 74231 TKR Total Knee Replacement Completed 02/03/2019 72184 TKR Total Knee Replacement Completed 02/03/2019 47021 TKR Total Knee Replacement Completed Medical Devices Description No Information Available Encounters Type Date Location Provider Dx Diagnosis Office Visit 04/13/2019 [facility] Jessie Fagan M25.562 Pain in left knee 8:45a at [place] [facility] M M25.462 Effusion, left knee M17.12 Unilateral primary osteoarthritis, left knee Assessments Date Code Description Provider 08/01/2019 M17.12 Unilateral primary osteoarthritis, left knee Jessie Fagan M.D. 08/01/2019 Z47.1 Aftercare following joint replacement surgery Jessie Fagan M.D. 07/27/2019 M17.12 Unilateral primary osteoarthritis, left knee [...] 06/29/2019 M25.562 Pain in left knee Jessie Fagan, M.DLucero 06/29/2019 M25.462 Effusion, left knee Jessie Fagan M.D. 06/29/2019 M17.12 Unilateral primary osteoarthritis, left knee Jessie Fagan M.D. 04/22/2019 Z47.1 Aftercare following joint replacement surgery Jessie Fagan M.D. 04/22/2019 Z96.651 Presence of right artificial knee joint Jessie Fagan M.D. 04/13/2019 M25.562 Pain in left knee Jessie Fagan M.DLucero 04/13/2019 M25.462 Effusion, left knee Jessie Fagan [...] 1:45 pm - Jessie Fagan M.D. at [facility] at Dyxnqu8308/01/2019 - Jessie Fagan M.D.M17.12 Unilateral primary osteoarthritis, left kneeFollow up:has [id number] Aftercare following joint replacement surgery Functional Status Description No Information Available Mental Status Description No Information Available Referrals Description No Information Available
[2019-08-02] MEDS ORDERED: EPINEPHRINE 1 MG/ML 1 ML VIAL IM ONE (07:15)
[2019-08-02] MEDS ORDERED: methylPREDNISolone 125 MG* 2 ML VIAL IV ONE (07:15)
--- NOTE | 2019-08-02 07:18 | ED ---
Allergic Reaction/Systemic - HPI Summary HPI Summary: Patient is a 63 y/o F presenting to the ED for a chief complaint of allergic reaction. Patient states that around 05:45 on 08/02/19, patient woke up and noticed she had swelling of her tongue and jaw, left more than right. On , she initially noticed she had swelling of the lips and jaw. She began taking penicillin on 07/29/19 after the swelling continued, but when she developed hives, she stopped taking the penicillin. Patient denies throat tightening or shortness of breath. Patient notes having similar symptoms in the past after a right knee replacement in February 2019. At that time, she had tongue and jaw swelling and was prescribed clindamycin for a dental infection. After having an allergic reaction to clindamycin, she was switched to penicillin and her symptoms resolved. She later saw a dentist who told her no intervention was needed for the dental infection. Patient reports having facial swelling 20 years ago, but denies other similar episodes. PMHx of HTN is denied. PSHx is significant for left knee replacement on 07/14/19 for which she is taking Percocet. FMHx of angioedema is denied. Patient is taking aspirin and Citalopram, but denies taking Lisinopril. - History of Current Complaint Chief Complaint: EDAllergicReaction Time Seen by Provider: 08/02/19 06:58 Hx Obtained From: Patient Onset/Duration: Sudden Onset, Started minutes ago, Still Present Timing: Constant Severity Initially: Mild Severity Currently: None Pain Intensity: 0 Pain Scale Used: 0-10 Numeric Character: Swelling - Tongue and jaw, left more than right Aggravating Factor(s): Nothing Alleviating Factor(s): Nothing Associated Signs And Symptoms: Negative: Difficulty Breathing, Throat Tightening - Allergies/Home Medications Allergies/Adverse Reactions: Allergies Allergy/AdvReac Type Severity Reaction Status Date / Time clindamycin Allergy Severe tongue Verified 08/02/19 06:40 swelling nickel Allergy Severe Rash Verified 08/02/19 06:40 Penicillins Allergy Hives Verified 08/02/19 06:51 Home Medications: Home Medications Aspirin EC TAB* [Ecotrin EC TAB*] 325 mg PO BID 08/02/19 [History Confirmed ] diPHENhydraMINE PO* [Benadryl PO 25 MG TAB*] 25 mg PO Q6H PRN 08/02/19 [History Confirmed 08/02/19] oxyCODONE/Acetamin 5/325 MG* [Percocet 5/325 TAB*] 1 tab PO .Q4-6H PRN 08/02/19 [History Confirmed 08/02/19] PMH/Surg Hx/FS Hx/Imm Hx Previously Healthy: Yes Endocrine/Hematology History: Denies: Hx Diabetes Cardiovascular History: Denies: Hx Congestive Heart Failure, Hx Hypertension GI History: Reports: Hx Gastroesophageal Reflux Disease - controlled with diet, Other GI Disorders - acid reflux History: Denies: Hx Renal Disease Musculoskeletal History: Reports: Hx Arthritis - hands, knee, Hx Joint Replacement - Left knee replacement, Other Musculoskeletal History - right hamstring shortened Sensory History: Reports: Hx Contacts or Glasses - glasses Denies: Hx Legally Blind, Hx Deafness, Hx Hearing Aid Opthamlomology History: Reports: Hx Contacts or Glasses - glasses Denies: Hx Legally Blind EENT History: Denies: Hx Deafness Neurological History: Reports: Hx Nerve Disease - RLS occassionally, Other Neuro Impairments/Disorders - essential tremors- hands, fingers Psychiatric History: Reports: Hx Anxiety - Cancer History Hx Chemotherapy: No - Surgical History Surgical History: Yes Surgery Procedure, Year, and Place: tubal ligation. right knee meniscus repair 2006. right total knee replacement 01/2019. left total knee replacement 2019 Hx Anesthesia Reactions: No Infectious Disease History: No Infectious Disease History: Denies: Traveled Outside the [place] in Last 30 Days - Family History Known Family History: Positive: Diabetes, Other - positive: colon cancer; negative angiodema - Social History Occupation: Employed Full-time Lives: With Family Alcohol Use: None Alcohol Amount: 1-2 Hx Substance Use: No Substance Use Type: Reports: None Substance Use Comment - Amount & Last Used: edible - once a day Hx Tobacco Use: No Smoking Status (MU): Never Smoked Tobacco Review of Systems Positive: Other - Positive swelling of the tongue and jaw, left more than right , lip swelling, resolved; negative throat tightening Negative: Shortness Of Breath All Other Systems Reviewed And Are Negative: Yes Physical Exam - Summary Physical Exam Summary: Constitutional: Well-developed, Well-nourished, Alert. (-) Distressed Skin: Warm, Dry HENT: Normocephalic; Atraumatic. Angioedema of the left tongue, no lip swelling , no uvula involvement Eyes: Conjunctiva normal Neck: Musculoskeletal ROM normal neck. (-) JVD, (-) Stridor, (-) Nuchal rigidity Cardio: Rhythm regular, rate normal, Heart sounds normal; Intact distal pulses; Radial pulses are 2+ and symmetric. (-) Murmur Pulmonary/Chest wall: Effort normal. (-) Respiratory distress, (-) Wheezes, (-) Rales Abd: Soft, (-) tenderness, (-) Distension, (-) Guarding, (-) Rebound Musculoskeletal: Trace LLE edema. Post surgical changes of the left knee. Lymph: (-) Cervical adenopathy Neuro: Alert, Oriented x3 Psych: Mood and affect Normal Triage Information Reviewed: Yes Vital Signs On Initial Exam: Initial Vitals Temp Pulse Resp BP Pulse Ox 98.2 F 80 15 136/66 98 08/02/19 06:39 08/02/19 06:39 08/02/19 06:39 08/02/19 06:39 08/02/19 06:39 Vital Signs Reviewed: Yes Procedures - Sedation Patient Received Moderate/Deep Sedation with Procedure: No Diagnostics - Vital Signs Vital Signs Temp Pulse Resp BP Pulse Ox 08/02/19 06:52 71 100 08/02/19 06:50 76 123/81 96 08/02/19 06:39 98.2 F 80 15 136/66 98 - Laboratory Lab Statement: Any lab studies that have been ordered have been reviewed, and results considered in the medical decision making process. Re-Evaluation - Re-Evaluation First Eval Re-Evaluation Time: 08:06 Change: Improved Comment: At 08:06, patients angioedema is improving. Second Eval Re-Evaluation Time: 10:20 Change: Improved - angioedema nearly resolved, tolerating PO. Given epi pen rx Allergic Reaction Course/Dx - Course Course Of Treatment: 63 y/o F w recent knee replacement p/w tongue swelling. - on exam localized swelling of L tongue, no uvular involvement. airway intact. - given epi/solumedrol, FFP ordered but canceled 2/2 improvement. - unclear cause (medications vs heriditary), no new medications. Given epi pen rx - Diagnoses Provider Diagnoses: Angioedema Discharge ED - Sign-Out/Discharge Documenting (check all that apply): Patient Departure - Discharge - Discharge Plan Condition: Stable Disposition: HOME Prescriptions: EPINEPHrine [Epipen 2-Chi] 0.3 mg IJ ONCE 1 Days #1 auto.injct Patient Education Materials: Angioedema (ED) Referrals: Pawel Singh MD [Primary Care Provider] - Additional Instructions: You were seen in the emergency department for tongue swelling. You have angioedema,we do not know the cause. If any studies were not completed at the time of discharge you will be called with the relevant results. Please follow up with your primary care doctor in next 2-3 days and return to emergency department for lip swelling, tongue swelling, trouble breathing, trouble swallowing,worsening or concerning symptoms. It was a pleasure taking care of you today. Carry an EPI-PEN (or similar device) WITH YOU AT ALL TIMES. You should keep one on your person at ALL TIMES. Keep one in your wallet, purse, or pocket, one at home, one at work, and one in your car. If you feel symptoms of another allergic reaction coming on- use the EPI-PEN IMMEDIATELY and then call 911. DO NOT WAIT TO INJECT YOURSELF IF YOU HAVE SYMPTOMS- THE DELAY COULD BE FATAL. IF YOU HAVE ANY DOUBT, it is better to inject yourself rather than wait. If you still have symptoms 5 minutes after giving yourself an EPI-PEN, give yourself a second epi-pen injection. Make sure to check the expiration dates on your epi- pen and refill them BEFORE they . - Billing Disposition and Condition Condition: STABLE Disposition: Home - Attestation Statements Document Initiated by John: Yes Documenting Scribe: Ann Lo Provider For Whom John is Documenting (Include Credential): Millie Garcia MD Scribe Attestation: I, Ann Lo, scribed for Millie Garcia MD on 08/02/19 at 1102. Scribe Documentation Reviewed: Yes Provider Attestation: The documentation as recorded by the Ann hall accurately reflects the service I personally performed and the decisions made by me, Millie Garcia MD Status of Scribe Document: Viewed
[2019-08-02 11:00] VITALS: BP 128/59
== END 2019-08-02 10:59 | disposition home or self-care (01) ==
LOC: ED 06:35
DX: T78.3XXA Angioneurotic edema, initial encounter (principal); Z79.82 Long term (current) use of aspirin; Z79.899 Other long term (current) drug therapy; Z88.0 Allergy status to penicillin
CPT/HCPCS: 36415; 86850; 86900; 86901; 96372; 96374; 99283; J2930